=== PATIENT | female | born 1935 | race Two or more races ===

== ENCOUNTER 2016-12-14 22:37 | Inpatient (IN) | payer MEDICARE, MEDICAID ==
[~2016-12-14] VITALS: Ht 152.4 cm; Wt 61.7 kg
[2016-12-14] MEDS ORDERED: UNOBMED (22:44)
[2016-12-14 23:40] LABS: MEAN CORPUSCULAR HEMOGLOBIN 32.7 PG (27.0-31.0); MEAN CORPUSCULAR HGB CONC 35.8 G/DL (32.0-36.0); MEAN CORPUSCULAR VOLUME 91 FL (80-99); MEAN PLATELET VOLUME 8.6 FL (6.5-10.1); PLATELET COUNT 75 K/UL (150-450); RED BLOOD COUNT 4.17 M/UL (4.20-5.40); RED CELL DISTRIBUTION WIDTH 12.6 % (11.6-14.8); WHITE BLOOD COUNT 6.7 K/UL (4.8-10.8)
[2016-12-14 23:56] LABS: INR 1.1 (0.9-1.1); PROTHROMBIN TIME 11.3 SEC (9.30-11.50)
[2016-12-14 23:59] LABS: ALANINE AMINOTRANSFERASE 24 U/L (3-33); ANION GAP 14 (5-15); ASPARTATE AMINO TRANSFERASE 48 U/L (5-40); CALCIUM 8.7 mg/dL (8.6-10.2); CARBON DIOXIDE 22 mEQ/L (20-30); CHLORIDE 99 mEQ/L (98-107); CREATININE 0.7 mg/dL (0.5-0.9); HEMOLYSIS 8; POTASSIUM 3.7 mEQ/L (3.4-4.9); SODIUM 135 mEQ/L (135-145); TOTAL PROTEIN 6.7 g/dL (6.6-8.7)
[2016-12-15] MEDS ORDERED: Silver Nitrate Stick TOPIC ONE (00:15)
[2016-12-15 00:26] LABS: TROPONIN I < 0.30 ng/mL (<=0.30)
--- NOTE | 2016-12-15 00:41 | Emergency Room Report ---
History of Present Illness General Chief Complaint: Nosebleed Source: Patient, Family Member Present Illness HPI Patient presents with a nosebleed. It's substantial. This began approximately an hour before presentation to the emergency department. She didwhen she was a young child. She has a history of hypertension but denies any bleeding disorders recently. She denies any fevers, pain. She's not been swallowing the clots. She didn't decreasing the amount of bleeding by putting pressure on her nose. The patient denies any diabetes. She's not taking any aspirin or other blood thinners at this time. She denies any trauma. There is no pain. She denies any chest pain, cough, nausea, vomiting, diarrhea dysuria, melena. She has no extremity pain. Allergies: Coded Allergies: No Known Allergies (Unverified , 12/14/16) Patient History Past Medical History: see triage record Social History: Denies: alcohol use, drug use, smoking Social History Narrative With her daughter Now: No Reviewed Nursing Documentation: PMH: Agreed, PSxH: Agreed Nursing Documentation-PMH Hx Hypertension: Yes Review of Systems All Other Systems: negative except mentioned in HPI Physical Exam Vital Signs Date Time Temp Pulse Resp B/P Pulse Ox O2 Delivery O2 Flow Rate FiO2 12/14/16 22:41 84 14 168/72 97 Room Air Sp02 EP Interpretation: reviewed, normal General Appearance: well appearing, no apparent distress, GCS 15 Head: normocephalic Eyes: bilateral eye PERRL, bilateral eye normal inspection ENT: moist mucus membranes - blood on tongue, other - bleeding R side Neck: supple, no bony tend Respiratory: lungs clear, normal breath sounds Cardiovascular #1: regular rate, rhythm Cardiovascular #2: 2+ radial (R) Gastrointestinal: normal inspection, normal bowel sounds, non tender, no mass, non-distended Musculoskeletal: back normal, gait/station normal, normal range of motion Neurologic: alert, oriented x3, grossly normal Psychiatric: mood/affect normal Skin: normal inspection, warm/dry Procedures Additional Procedure Procedure Narrative Anterior epistaxis control: Back twice with lidocaine with epinephrine on cotton ball. Bleeding was stopped with this. Septal lesion is identified and silver nitrate was used to cauterize. Patient tolerated procedure well. Medical Decision Making Diagnostic Impression: Primary Impression: Epistaxis Additional Impressions: Hyperglycemia Thrombocytopenia Diabetes mellitus, new onset ER Course Patient presents with nosebleed. Affect is coming from the front suggested anterior epistaxis. Differential also includes that she might have some coagulopathy or bleeding disorder. Please check labs including INR and CBC. In addition to that electrolytes will be checked with liver function tests. The bleeding ECs controlled and she will be packed with lidocaine and epinephrine and we will attempt to cauterize the lesion. Anterior epistaxis was controlled with packing and silver nitrate. The patient tolerated by mouth well. Labs are significant for thrombocytopenia and also elevated blood sugar. No prior h/o diabetes. Due to low platelets and high glucose, patient admitted. to hospital. Started on metformin. Contacted Dr. Dunham for admission. Laboratory Tests Test 12/14/16 23:10 White Blood Count 6.7 K/UL (4.8-10.8) Red Blood Count 4.17 M/UL (4.20-5.40) L Hemoglobin 13.6 G/DL (12.0-16.0) Hematocrit 38.1 % (37.0-47.0) Mean Corpuscular Volume 91 FL (80-99) Mean Corpuscular Hemoglobin 32.7 PG (27.0-31.0) H Mean Corpuscular Hemoglobin Concent 35.8 G/DL (32.0-36.0) Red Cell Distribution Width 12.6 % (11.6-14.8) Platelet Count 75 K/UL (150-450) L Mean Platelet Volume 8.6 FL (6.5-10.1) Neutrophils (%) (Auto) % (45.0-75.0) Lymphocytes (%) (Auto) % (20.0-45.0) Monocytes (%) (Auto) % (1.0-10.0) Eosinophils (%) (Auto) % (0.0-3.0) Basophils (%) (Auto) % (0.0-2.0) Prothrombin Time 11.3 SEC (9.30-11.50) Prothrombin Time INR 1.1 (0.9-1.1) PTT 31 SEC (23-33) Sodium Level 135 mEQ/L (135-145) Potassium Level 3.7 mEQ/L (3.4-4.9) Chloride Level 99 mEQ/L (98-107) Carbon Dioxide Level 22 mEQ/L (20-30) Anion Gap 14 (5-15) Blood Urea Nitrogen 13 mg/dL (7-23) Creatinine 0.7 mg/dL (0.5-0.9) Estimate Glomerular Filtration Rate mL/min (>60) Glucose Level 438 mg/dL (74-106) H Calcium Level 8.7 mg/dL (8.6-10.2) Total Bilirubin 1.0 mg/dL (0.0-1.2) Aspartate Amino Transferase (AST) 48 U/L (5-40) H Alanine Aminotransferase (ALT) 24 U/L (3-33) Alkaline Phosphatase 152 U/L (35-104) H Total Creatine Kinase 236 U/L (26-140) H Troponin I < 0.30 ng/mL (<=0.30) Pro-B-Type Natriuretic Peptide 58 pg/mL (0-450) Total Protein 6.7 g/dL (6.6-8.7) Albumin 3.5 g/dL (3.5-5.2) Globulin 3.2 g/dL Albumin/Globulin Ratio 1.0 (1.0-2.7) EKG Diagnostic Results Rate: normal Rhythm: NSR ST Segments: no acute changes - LBBB Rhythm Strip Diag. Results EP Interpretation: yes Rhythm: NSR, no PVC's, no ectopy Last Vital Signs Date Time Temp Pulse Resp B/P Pulse Ox O2 Delivery O2 Flow Rate FiO2 12/15/16 03:38 98.8 66 20 135/66 99 Room Air Status: improved Disposition: ADMITTED INPATIENT Condition: Serious Dixon Pennington M.D. Dec 15, 2016 00:41
[2016-12-15] MEDS ORDERED: metFORMIN 500mg tab ORAL STA (00:43)
[2016-12-15 01:30] VITALS: BP 143/52
[2016-12-15 03:10] VITALS: BP 135/66
[2016-12-15] MEDS ORDERED: Nitroglycerin Subl 0.4mg tab (Bottle Of 25) SL PRN (06:30)
[2016-12-15] MEDS ORDERED: Mylanta II UD 30ml ORAL PRN (06:30)
[2016-12-15] MEDS ORDERED: Morphine Sulfate 2mg/ml Inj IVP PRN (06:30)
[2016-12-15] MEDS ORDERED: DuoNeb 0.5-3(2.5)mg/3ml neb HHN PRN (06:30)
[2016-12-15] MEDS ORDERED: Miralax 17gm pkt ORAL PRN (06:30)
[2016-12-15 08:02] VITALS: BP 169/76
[2016-12-15] MEDS: NovoLOG Insulin Flexpen SUBQ SCH ×4 (08:55→21:15)
--- NOTE | 2016-12-15 10:25 | History and Physical ---
History of Present Illness General Date patient seen: Dec 15, 2016 Reason for Hospitalization: Nosebleed Present Illness HPI 81 year old female with hx of HTN, presented with a nosebleed. It's substantial. This began approximately an hour before presentation to the emergency department. She didn't decrease the amount of bleeding by putting pressure on her nose. The patient denies any diabetes. She's not taking any aspirin or other blood thinners at this time. She denies any trauma. There is no pain. She denies any chest pain, cough, nausea, vomiting, diarrhea dysuria, melena. She has no extremity pain. She was found to be thrombocytopenic and admitted for further treatment. Allergies: Coded Allergies: No Known Allergies (Unverified , 12/14/16) Medication History Miscellaneous Medications Unable to Obtain Medications (Unable To Obtain Meds), (Reported) Patient History Healthcare decision maker Resuscitation status Advanced Directive on File Past Medical/Surgical History Past Medical/Surgical History: (1) Hypertension (2) Hyperglycemia Review of Systems All Other Systems: negative except mentioned in HPI Physical Exam General Appearance: WD/WN Lines, tubes and drains: peripheral, central line HEENT: normocephalic, atraumatic, anicteric Neck: non-tender, normal alignment Respiratory/Chest: chest wall non-tender, lungs clear Cardiovascular/Chest: normal peripheral pulses Abdomen: normal bowel sounds Genitourinary/Rectal: normal genital exam Extremities: normal range of motion Skin Exam: normal pigmentation Neurologic: cloth finisher II-XII grossly normal Last 24 Hour Vital Signs Date Time Temp Pulse Resp B/P Pulse Ox O2 Delivery O2 Flow Rate FiO2 12/15/16 08:53 169/76 12/15/16 08:02 98.2 72 16 169/76 97 12/15/16 03:38 98.8 66 20 135/66 99 Room Air 12/15/16 03:10 98.8 66 20 135/66 99 Room Air 12/15/16 01:30 98.8 66 20 143/52 99 Room Air 12/14/16 22:41 84 14 168/72 97 Room Air Intake and Output 12/14/16 12/15/16 19:00 07:00 Intake Total 0 ml Balance 0 ml Intake Oral 0 ml # Voids 2 Laboratory Tests Test 12/14/16 23:10 White Blood Count 6.7 K/UL (4.8-10.8) Red Blood Count 4.17 M/UL (4.20-5.40) L Hemoglobin 13.6 G/DL (12.0-16.0) Hematocrit 38.1 % (37.0-47.0) Mean Corpuscular Volume 91 FL (80-99) Mean Corpuscular Hemoglobin 32.7 PG (27.0-31.0) H Mean Corpuscular Hemoglobin Concent 35.8 G/DL (32.0-36.0) Red Cell Distribution Width 12.6 % (11.6-14.8) Platelet Count 75 K/UL (150-450) L Mean Platelet Volume 8.6 FL (6.5-10.1) Neutrophils (%) (Auto) % (45.0-75.0) Lymphocytes (%) (Auto) % (20.0-45.0) Monocytes (%) (Auto) % (1.0-10.0) Eosinophils (%) (Auto) % (0.0-3.0) Basophils (%) (Auto) % (0.0-2.0) Prothrombin Time 11.3 SEC (9.30-11.50) Prothromb Time International Ratio 1.1 (0.9-1.1) Activated Partial Thromboplast Time 31 SEC (23-33) Sodium Level 135 mEQ/L (135-145) Potassium Level 3.7 mEQ/L (3.4-4.9) Chloride Level 99 mEQ/L (98-107) Carbon Dioxide Level 22 mEQ/L (20-30) Anion Gap 14 (5-15) Blood Urea Nitrogen 13 mg/dL (7-23) Creatinine 0.7 mg/dL (0.5-0.9) Estimat Glomerular Filtration Rate mL/min (>60) Glucose Level 438 mg/dL (74-106) H Calcium Level 8.7 mg/dL (8.6-10.2) Total Bilirubin 1.0 mg/dL (0.0-1.2) Aspartate Amino Transf (AST/SGOT) 48 U/L (5-40) H Alanine Aminotransferase (ALT/SGPT) 24 U/L (3-33) Alkaline Phosphatase 152 U/L (35-104) H Total Creatine Kinase 236 U/L (26-140) H Troponin I < 0.30 ng/mL (<=0.30) Pro-B-Type Natriuretic Peptide 58 pg/mL (0-450) Total Protein 6.7 g/dL (6.6-8.7) Albumin 3.5 g/dL (3.5-5.2) Globulin 3.2 g/dL Albumin/Globulin Ratio 1.0 (1.0-2.7) Height (Feet): 5 Height (Inches): 0.00 Weight (Pounds): 136 Medications Current Medications Medications (Trade) Dose Ordered Sig/Wilmer Route PRN Reason Start Time Stop Time Status Last Admin Dose Admin Acetaminophen (Tylenol) 650 mg Q4H PRN ORAL fever 12/15/16 06:30 01/14/17 06:29 Al Hydroxide/Mg Hydroxide (Mylanta II) 30 ml Q6H PRN ORAL dyspepsia 12/15/16 06:30 01/14/17 06:29 Albuterol/ Ipratropium (DuoNeb 0.5-3(2.5)mg/3ml) 3 ml Q4H PRN HHN Shortness of Breath 12/15/16 06:30 12/20/16 06:29 Clonidine HCl (Catapres) 0.1 mg Q4H PRN ORAL sbp more than 160 12/15/16 06:30 01/14/17 06:29 12/15/16 08:53 Dextrose (Dextrose 50%) STAT PRN IV Hypoglycemia 12/15/16 06:30 01/14/17 06:29 Insulin Aspart (NovoLOG) BEFORE MEALS AND HS SUBQ 12/15/16 06:30 01/14/17 06:29 12/15/16 08:55 Metformin HCl (Glucophage) 500 mg TIAC ORAL 12/15/16 11:30 01/14/17 11:29 Morphine Sulfate (Morphine Sulfate) 2 mg Q4H PRN IVP severe pain 7-12/15/16 06:30 12/22/16 06:29 Nateglinide (Starlix) 120 mg TIAC ORAL 12/15/16 11:30 01/14/17 11:29 Nitroglycerin (Ntg) 0.4 mg Q5M X 3 DOSES PRN SL Prn Chest Pain 12/15/16 06:30 01/14/17 06:29 Ondansetron HCl (Zofran) 4 mg Q6H PRN IVP Nausea & Vomiting 12/15/16 06:30 01/14/17 06:29 Polyethylene Glycol (Miralax) 17 gm HSPRN PRN ORAL Constipation 12/15/16 06:30 01/14/17 06:29 Sodium Chloride (Sodium Chloride 1000ml bag) 1,000 ml @ 100 mls/hr Q10H IVLG 12/15/16 06:40 01/14/17 06:39 12/15/16 07:45 Temazepam (Restoril) 15 mg HSPRN PRN ORAL Insomnia 12/15/16 06:30 12/22/16 06:29 Assessment/Plan Problem List: (1) Epistaxis ICD Codes: R04.0 - Epistaxis SNOMED: 58322081, 157090179 (2) Thrombocytopenia ICD Codes: D69.6 - Thrombocytopenia, unspecified SNOMED: 934934181, 030650103 (3) Hyperglycemia ICD Codes: R73.9 - Hyperglycemia, unspecified SNOMED: 98383921, 876667687 Assessment/Plan ENT evaluation Hematology evaluation sliding scale Endo check h/h transfuse prn NADEEM BECERRIL Dec 15, 2016 10:25
[2016-12-15] MEDS: metFORMIN 500mg tab ORAL SCH ×2 (11:42→16:53)
[2016-12-15 11:54] VITALS: BP 138/69
--- NOTE | 2016-12-15 13:15 | Consultation ---
DATE OF CONSULTATION: 12/15/2016 ENDOCRINOLOGY CONSULTATION CONSULTING PHYSICIAN: Uli Bustos M.D. REFERRING PHYSICIAN: Stefani Dunham M.D. REASON FOR CONSULTATION: Diabetes, new onset. HISTORY OF PRESENT ILLNESS: The patient is a 81-year-old female without any history of diabetes but with significant family history of diabetes who presented to the hospital with severe epistaxis. She was found to have thrombocytopenia, admitted to the floor for observation and treatment. On presentation, her glucose is significantly elevated at 438. The patient did not know about the diagnosis of diabetes. PAST MEDICAL HISTORY: Unremarkable. PAST SURGICAL HISTORY: Unremarkable. MEDICATIONS: Reviewed and reconciled. SOCIAL HISTORY: Denies any smoking, alcohol, or drug use. FAMILY HISTORY: Significant for diabetes in her sister and mother. REVIEW OF SYSTEMS: As per history of present illness. PHYSICAL EXAMINATION: GENERAL: She is awake and alert. VITAL SIGNS: Blood pressure is 120/80, heart rate 72, temperature 98.0 degrees, and respiratory rate of 18. HEENT: Pupils are equal and reactive to light and accommodation. Sclerae are anicteric NECK: No JVD. No thyromegaly. LUNGS: Clear. HEART: Regular rate and rhythm. ABDOMEN: Positive bowel sounds. EXTREMITIES: Without clubbing, cyanosis, or edema. LABORATORY AND DIAGNOSTIC DATA: Sodium 135, potassium 3.7, chloride 99, bicarbonate 26, BUN 15, creatinine 0.7, and glucose of 437. Alkaline phosphatase 152. CK is 236. WBC 6.7, hemoglobin 13.6, hematocrit 38.1, and platelets of 75,000. DIAGNOSES: 1. Epistaxis, improved. 2. Thrombocytopenia, etiology is unknown. 3. Diabetes, new onset. PLAN: 1. Continue supportive care. 2. Metformin 500 mg t.i.d. 3. Start Starlix 120 mg t.i.d. 4. Hemoglobin A1c has been ordered by Dr. Dunham. We will follow the results. 5. Check blood glucose ac / hs with NovoLog insulin sliding scale. Thank you, Dr. Dunham, for the courtesy of this consultation. Uli Bustos M.D. DR: DANIE/javed JOB#: [id number] CC: HIEN
[2016-12-15] MEDS ORDERED: NORVASC5 MG ORAL (13:54)
[2016-12-15 16:57] VITALS: BP 127/57
--- NOTE | 2016-12-15 20:30 | Consultation ---
DATE OF CONSULTATION: 12/15/2016 HEMATOLOGY/ONCOLOGY CONSULTATION CONSULTING PHYSICIAN: Anthony Agee M.D. REQUESTING PHYSICIAN: Stefani Dnuham M.D. REASON FOR CONSULTATION: Evaluation of thrombocytopenia. IDENTIFICATION DATA: The patient is a pleasant 81-year-old female with a past medical history, which is significant for hyperglycemia and potentially newly diagnosed diabetes mellitus, at this time, presents to the hospital with an epistaxis episode that began approximately one hour prior to admission. She had the same symptoms when she was younger. She has a history of hypertension, but denies any history of recent bleeding, did not decrease in the amount of bleeding . She has not been showing clots. She has not been taking any aspirin or blood thinners. Denies any fevers, chills, or night sweats. PAST MEDICAL HISTORY: Hypertension. PAST SURGICAL HISTORY: None noted. ALLERGIES: No known drug allergies. REVIEW OF SYSTEMS: Constitutional: No fever, no chills, and no night sweats. Skin: No rashes, bumps, or itching. HEENT: No headache, hearing, or vision changes. Breasts: No lumps, pain, or discharge. Pulmonary: No cough, sputum, or shortness of breath. Cardiovascular: No chest pain, tightness, or palpitations. Gastrointestinal: No nausea, vomiting, or diarrhea. Genitourinary: No dysuria, frequency, or urgency. Musculoskeletal: No joint swelling, muscle pain, or trauma. PHYSICAL EXAMINATION: GENERAL: The patient is in no distress. VITAL SIGNS: Temperature 97.5 degrees Fahrenheit, pulse of 63, blood pressure 138/69, and pulse oximetry 97% on room air. PULMONARY: Decreased breath sounds. CARDIOVASCULAR: Regular rate. No S3 or S4. ABDOMEN: Soft, nontender and nondistended. EXTREMITIES: There is 1+ edema. LABORATORY DATA: Glucose of 138. INR 1.1. PT of 11 and PTT of 31. WBC of 6.7. Hemoglobin of 13.6 and platelet counts of 75,000. IMAGING: Reviewed. Currently, no imaging noted. ASSESSMENT AND PLAN: 1. Anterior epistaxis bleed, potentially secondary to thrombocytopenia, which is likely exacerbated. The bleed has been stopped with the administration of epinephrine and lidocaine. No evidence of coagulopathy. INR is within normal limits. 2. Anemia. Monitor crit. 3. Thrombocytopenia. I have sent for hepatitis, HIV panel, and ultrasound of the abdomen. 4. Hyperglycemia, rule out diabetes mellitus. Starting on metformin. 5. Left bundle-branch block. 6. Discussed with staff. Thank you, Dr. Stefani Dunham, for this kind referral. Please do not hesitate to contact me with any further questions. Anthony Agee M.D. DR: MIKAYLA JOB#: [id number] CC:
[2016-12-15 21:00] VITALS: BP 134/59
[2016-12-16] VITALS: BP 139/70
[2016-12-16 04:00] VITALS: BP 140/62
[2016-12-16] MEDS: metFORMIN 500mg tab ORAL SCH ×3 (06:05→16:55)
[2016-12-16] MEDS: NovoLOG Insulin Flexpen SUBQ SCH ×4 (06:07→20:56)
--- NOTE | 2016-12-16 07:43 | General Progress Note ---
Assessment/Plan Problem List: (1) Diabetes mellitus, new onset ICD Codes: E11.9 - Type 2 diabetes mellitus without complications SNOMED: 946832992 (2) Thrombocytopenia ICD Codes: D69.6 - Thrombocytopenia, unspecified SNOMED: 516456167, 138839041 (3) Hyperglycemia ICD Codes: R73.9 - Hyperglycemia, unspecified SNOMED: 44344724, 272341669 (4) Epistaxis ICD Codes: R04.0 - Epistaxis SNOMED: 54991755, 955959859 Assessment/Plan BG values improved continue Metformin 500 mg tid + Starlix 120 mg ac tid continue SSI - no need for insulin after discharge Subjective ROS Limited/Unobtainable: Yes Allergies: Coded Allergies: No Known Allergies (Unverified , 12/14/16) Subjective events noted Objective Last 24 Hour Vital Signs Date Time Temp Pulse Resp B/P Pulse Ox O2 Delivery O2 Flow Rate FiO2 12/16/16 04:00 97.9 63 20 140/62 94 Room Air 12/16/16 00:00 97.3 63 20 139/70 97 Room Air 12/15/16 21:00 97.7 67 20 134/59 97 Room Air 12/15/16 19:53 70 18 Room Air 21 12/15/16 19:51 96 Room Air 21 12/15/16 19:51 Room Air 21 12/15/16 16:57 97.7 64 14 127/57 96 Room Air 12/15/16 11:54 97.5 63 15 138/69 97 Room Air 12/15/16 08:53 169/76 12/15/16 08:02 98.2 72 16 169/76 97 Intake and Output 12/15/16 12/16/16 19:00 07:00 Intake Total 1900 ml 1250 ml Output Total 580 ml Balance 1900 ml 670 ml Intake Oral 900 ml 350 ml IV Total 1000 ml 900 ml Output Urine Total 580 ml # Voids 2 Laboratory Tests 12/15/16 14:20: Hepatitis A IgM Antibody [Pending], Hepatitis B Surface Antigen [Pending], Hepatitis B Core IgM Antibody [Pending], Hepatitis C Antibody [Pending], HIV (1& 2) Antibody Rapid Negative 12/15/16 17:30: Stool Occult Blood [Pending] Height (Feet): 5 Height (Inches): 0.00 Weight (Pounds): 136 General Appearance: no apparent distress Neck: normal alignment Cardiovascular: regular rhythm Respiratory/Chest: normal breath sounds Abdomen: normal bowel sounds Edema: no edema noted Arm (L), no edema noted Arm (R), no edema noted Leg (L), no edema noted Leg (R), no edema noted Pedal (L), no edema noted Pedal (R), no edema noted Generalized Objective Current Medications Medications (Trade) Dose Ordered Sig/Wilmer Route PRN Reason Start Time Stop Time Status Last Admin Dose Admin Acetaminophen (Tylenol) 650 mg Q4H PRN ORAL fever 12/15/16 06:30 01/14/17 06:29 Al Hydroxide/Mg Hydroxide (Mylanta II) 30 ml Q6H PRN ORAL dyspepsia 12/15/16 06:30 01/14/17 06:29 Albuterol/ Ipratropium (DuoNeb 0.5-3(2.5)mg/3ml) 3 ml Q4H PRN HHN Shortness of Breath 12/15/16 06:30 12/20/16 06:29 Amlodipine Besylate (Norvasc) 5 mg DAILY ORAL 12/16/16 09:00 01/15/17 08:59 Clonidine HCl (Catapres) 0.1 mg Q4H PRN ORAL sbp more than 160 12/15/16 06:30 01/14/17 06:29 12/15/16 08:53 Dextrose (Dextrose 50%) STAT PRN IV Hypoglycemia 12/15/16 06:30 01/14/17 06:29 Insulin Aspart (NovoLOG) BEFORE MEALS AND HS SUBQ 12/15/16 06:30 01/14/17 06:29 12/15/16 21:15 Metformin HCl (Glucophage) 500 mg TIAC ORAL 12/15/16 11:30 01/14/17 11:29 12/16/16 06:05 Morphine Sulfate (Morphine Sulfate) 2 mg Q4H PRN IVP severe pain 7-12/15/16 06:30 12/22/16 06:29 Nateglinide (Starlix) 120 mg TIAC ORAL 12/15/16 11:30 01/14/17 11:29 12/16/16 06:05 Nitroglycerin (Ntg) 0.4 mg Q5M X 3 DOSES PRN SL Prn Chest Pain 12/15/16 06:30 01/14/17 06:29 Non-Formulary Medication (Non-Formulary Med) 1 ea DAILY BOTH EYES 12/16/16 09:00 01/15/17 08:59 UNV Ondansetron HCl (Zofran) 4 mg Q6H PRN IVP Nausea & Vomiting 12/15/16 06:30 01/14/17 06:29 Polyethylene Glycol (Miralax) 17 gm HSPRN PRN ORAL Constipation 12/15/16 06:30 01/14/17 06:29 Sodium Chloride (Sodium Chloride 1000ml bag) 1,000 ml @ 100 mls/hr Q10H IVLG 12/15/16 06:40 01/14/17 06:39 12/16/16 04:10 Temazepam (Restoril) 15 mg HSPRN PRN ORAL Insomnia 12/15/16 06:30 12/22/16 06:29 Item Value Date Time Bedside Blood Glucose 191 mg/dl H 12/16/16 0607 Bedside Blood Glucose 175 mg/dl H 12/15/16 2115 Bedside Blood Glucose 138 mg/dl H 12/15/16 1655 Bedside Blood Glucose 332 mg/dl H 12/15/16 1144 Bedside Blood Glucose 229 mg/dl H 12/15/16 0855 Bedside Blood Glucose 229 mg/dl H 12/15/16 0658 CHRISTIN COLINDRES Dec 16, 2016 07:43
[2016-12-16 08:00] VITALS: BP 173/77
[2016-12-16 10:10] LABS: MEAN CORPUSCULAR HEMOGLOBIN 31.2 PG (27.0-31.0); MEAN CORPUSCULAR HGB CONC 33.6 G/DL (32.0-36.0); MEAN CORPUSCULAR VOLUME 93 FL (80-99); MEAN PLATELET VOLUME 9.6 FL (6.5-10.1); PLATELET COUNT 63 K/UL (150-450); RED BLOOD COUNT 3.66 M/UL (4.20-5.40); RED CELL DISTRIBUTION WIDTH 12.8 % (11.6-14.8); WHITE BLOOD COUNT 5.3 K/UL (4.8-10.8)
[2016-12-16 10:33] LABS: ALANINE AMINOTRANSFERASE 17 U/L (3-33); ANION GAP 11 (5-15); ASPARTATE AMINO TRANSFERASE 32 U/L (5-40); CALCIUM 8.2 mg/dL (8.6-10.2); CARBON DIOXIDE 21 mEQ/L (20-30); CHLORIDE 108 mEQ/L (98-107); CHOLESTEROL 140 mg/dL (< 200); CHOLESTEROL/HDL RATIO 3.6 (3.3-4.4); CREATININE 0.5 mg/dL (0.5-0.9); HEMOLYSIS 15; LDL CHOLESTEROL (CALC.) 74 mg/dL (60-99); POTASSIUM 3.5 mEQ/L (3.4-4.9); SODIUM 140 mEQ/L (135-145); TOTAL PROTEIN 6.1 g/dL (6.6-8.7)
[2016-12-16 10:43] LABS: THYROID STIMULATING HORMONE 0.957 uIU/mL (0.300-4.500)
[2016-12-16 10:54] LABS: BILIRUBIN,DIRECT 0.3 mg/dL (0.1-0.3)
[2016-12-16 11:19] LABS: HEMOGLOBIN A1C 9.6 % (< 6.0)
[2016-12-16 12:00] VITALS: BP 125/61
[2016-12-16 12:24] LABS: BAND NEUTROPHILS % (MANUAL) 0 % (0-8); BASOPHILS % (MANUAL) 0 % (0-2); EOSINOPHILS % (MANUAL) 4 % (0-3); LYMPHOCYTES % (MANUAL) 37 % (20-45); NEUTROPHILS % (MANUAL) 51 % (45-75); PLATELET ESTIMATE DECREASED; PLATELET MORPHOLOGY NORMAL; TOTAL CELLS COUNTED 100
--- NOTE | 2016-12-16 13:14 | Diagnostic Imaging Report ---
Indication:Abdominal pain Technique: Grayscale and duplex Doppler imaging of the abdomen performed. Comparison: None Findings: The liver is heterogeneous and shows surface nodularity. There is both antegrade and retrograde flow within the portal vein. The spleen is not enlarged. However the findings are suspicious for portal hypertension associated with chronic liver disease. There is also the suggestion of varices with serpiginous vascular structures exhibiting color flow in the upper abdomen and left upper quadrant. The kidneys are unremarkable bilaterally. There is no ascites. Spleen has dimensions of approximately 11.2 x 7 cm. Demonstrated part of the pancreas is unremarkable in appearance. There is no biliary ductal dilatation appreciated. Gallbladder is unremarkable. Impression: Suspicion of chronic liver disease/cirrhosis. Suspicion of portal hypertension as discussed above. 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
--- NOTE | 2016-12-16 15:35 | Pulmonology Progress Note ---
Assessment/Plan Problems: (1) Thrombocytopenia (2) Hyperglycemia (3) Epistaxis (4) Lower GI bleed (5) Diabetes mellitus, new onset Assessment/Plan OB + GI evaluation might need bone marrow biopsy Subjective ROS Limited/Unobtainable: No Constitutional: Reports: no symptoms HEENT: Repors: no symptoms Respiratory: Reports: no symptoms Allergies: Coded Allergies: No Known Allergies (Unverified , 12/14/16) Objective Last 24 Hour Vital Signs Date Time Temp Pulse Resp B/P Pulse Ox O2 Delivery O2 Flow Rate FiO2 12/16/16 12:00 97.7 57 16 125/61 96 Room Air 12/16/16 09:46 66 173/77 12/16/16 09:46 173/77 12/16/16 08:00 97.7 66 20 173/77 96 Room Air 12/16/16 07:53 63 18 Room Air 21 12/16/16 04:00 97.9 63 20 140/62 94 Room Air 12/16/16 00:00 97.3 63 20 139/70 97 Room Air 12/15/16 21:00 97.7 67 20 134/59 97 Room Air 12/15/16 19:53 70 18 Room Air 21 12/15/16 19:51 96 Room Air 21 12/15/16 19:51 Room Air 21 12/15/16 16:57 97.7 64 14 127/57 96 Room Air Intake and Output 12/15/16 12/16/16 19:00 07:00 Intake Total 1900 ml 1250 ml Output Total 580 ml Balance 1900 ml 670 ml Intake Oral 900 ml 350 ml IV Total 1000 ml 900 ml Output Urine Total 580 ml # Voids 2 General Appearance: WD/WN HEENT: normocephalic, atraumatic Respiratory/Chest: chest wall non-tender, lungs clear Cardiovascular: normal peripheral pulses, normal rate Abdomen: normal bowel sounds, soft, non tender Genitourinary: normal external genitalia Extremities: no cyanosis Skin: no rash Neurologic/Psychiatric: no motor/sensory deficits Lymphatic: no neck adenopathy Musculoskeletal: normal muscle bulk Laboratory Tests 12/15/16 17:30: Stool Occult Blood Positive 12/16/16 04:00: White Blood Count 5.3, Red Blood Count 3.66L, Hemoglobin 11.4L, Hematocrit 34.0L , Mean Corpuscular Volume 93, Mean Corpuscular Hemoglobin 31.2H, Mean Corpuscular Hemoglobin Concent 33.6, Red Cell Distribution Width 12.8, Platelet Count 63L, Mean Platelet Volume 9.6, Neutrophils (%) (Auto) , Lymphocytes (%) ( Auto) , Monocytes (%) (Auto) , Eosinophils (%) (Auto) , Basophils (%) (Auto) , Differential Total Cells Counted 100, Neutrophils % (Manual) 51, Lymphocytes % ( Manual) 37, Monocytes % (Manual) 8, Eosinophils % (Manual) 4H, Basophils % ( Manual) 0, Band Neutrophils 0, Platelet Estimate DecreasedL, Platelet Morphology Normal, Red Blood Cell Morphology Normal 12/16/16 09:30: Sodium Level 140, Potassium Level 3.5, Chloride Level 108H, Carbon Dioxide Level 21, Anion Gap 11, Blood Urea Nitrogen 11, Creatinine 0.5, Estimat Glomerular Filtration Rate , Glucose Level 165#H, Hemoglobin A1c 9.6H, Calcium Level 8.2L, Total Bilirubin 1.1, Direct Bilirubin 0.3, Aspartate Amino Transf ( AST/SGOT) 32, Alanine Aminotransferase (ALT/SGPT) 17, Alkaline Phosphatase 88, Total Protein 6.1L, Albumin 3.1L, Globulin 3.0, Albumin/Globulin Ratio 1.0, Triglycerides Level 137, Cholesterol Level 140, LDL Cholesterol 74, HDL Cholesterol 39, Cholesterol/HDL Ratio 3.6, Thyroid Stimulating Hormone (TSH) 0.957 Current Medications Medications (Trade) Dose Ordered Sig/Wilmer Route PRN Reason Start Time Stop Time Status Last Admin Dose Admin Acetaminophen (Tylenol) 650 mg Q4H PRN ORAL fever 12/15/16 06:30 01/14/17 06:29 Al Hydroxide/Mg Hydroxide (Mylanta II) 30 ml Q6H PRN ORAL dyspepsia 12/15/16 06:30 01/14/17 06:29 Albuterol/ Ipratropium (DuoNeb 0.5-3(2.5)mg/3ml) 3 ml Q4H PRN HHN Shortness of Breath 12/15/16 06:30 12/20/16 06:29 Amlodipine Besylate (Norvasc) 5 mg DAILY ORAL 12/16/16 09:00 01/15/17 08:59 12/16/16 09:46 Clonidine HCl (Catapres) 0.1 mg Q4H PRN ORAL sbp more than 160 12/15/16 06:30 01/14/17 06:29 12/16/16 09:46 Dextrose (Dextrose 50%) STAT PRN IV Hypoglycemia 12/15/16 06:30 01/14/17 06:29 Insulin Aspart (NovoLOG) BEFORE MEALS AND HS SUBQ 12/15/16 06:30 01/14/17 06:29 12/15/16 21:15 Latanoprost (Xalatan) 1 drop BEDTIME BOTH EYES 12/16/16 21:00 01/15/17 20:59 Metformin HCl (Glucophage) 500 mg TIAC ORAL 12/15/16 11:30 01/14/17 11:29 12/16/16 12:21 Morphine Sulfate (Morphine Sulfate) 2 mg Q4H PRN IVP severe pain 712/15/16 06:30 12/22/16 06:29 Nateglinide (Starlix) 120 mg TIAC ORAL 12/15/16 11:30 01/14/17 11:29 12/16/16 12:21 Nitroglycerin (Ntg) 0.4 mg Q5M X 3 DOSES PRN SL Prn Chest Pain 12/15/16 06:30 01/14/17 06:29 Ondansetron HCl (Zofran) 4 mg Q6H PRN IVP Nausea & Vomiting 12/15/16 06:30 01/14/17 06:29 Polyethylene Glycol (Miralax) 17 gm HSPRN PRN ORAL Constipation 12/15/16 06:30 01/14/17 06:29 Sodium Chloride (Sodium Chloride 1000ml bag) 1,000 ml @ 100 mls/hr Q10H IVLG 12/15/16 06:40 01/14/17 06:39 12/16/16 04:10 Temazepam (Restoril) 15 mg HSPRN PRN ORAL Insomnia 12/15/16 06:30 12/22/16 06:29 NADEEM BECERRIL Dec 16, 2016 15:35
[2016-12-16 16:00] VITALS: BP 132/60
[2016-12-16 20:26] VITALS: BP 146/59
--- NOTE | 2016-12-16 21:47 | General Progress Note ---
Assessment/Plan Assessment/Plan 1. Anterior epistaxis bleed, potentially secondary to thrombocytopenia, which is likely exacerbated. The bleed has been stopped with the administration of epinephrine and lidocaine. No evidence of coagulopathy. INR is within normal limits. 2. Anemia. Monitor crit. 3. Thrombocytopenia. I have sent for hepatitis, HIV panel, and ultrasound of the abdomen. ---> abd US shows evidence of portal HTN associated with liver disease ---> HIV negative, Hep panel pending 4. Hyperglycemia, rule out diabetes mellitus. Starting on metformin. 5. Left bundle-branch block. 6. Discussed with staff. Subjective Constitutional: Reports: no symptoms HEENT: Reports: no symptoms Cardiovascular: Reports: no symptoms Respiratory: Reports: no symptoms Gastrointestinal/Abdominal: Reports: no symptoms Genitourinary: Reports: no symptoms Neurologic/Psychiatric: Reports: no symptoms Endocrine: Reports: no symptoms Hematologic/Lymphatic: Reports: anemia Allergies: Coded Allergies: No Known Allergies (Unverified , 12/14/16) Subjective a/ox1, afebrile Objective Last 24 Hour Vital Signs Date Time Temp Pulse Resp B/P Pulse Ox O2 Delivery O2 Flow Rate FiO2 12/16/16 20:26 97.7 61 19 146/59 98 Room Air 12/16/16 19:15 62 18 Room Air 12/16/16 16:00 97.7 60 18 132/60 95 Room Air 12/16/16 12:00 97.7 57 16 125/61 96 Room Air 12/16/16 09:46 66 173/77 12/16/16 09:46 173/77 12/16/16 08:00 97.7 66 20 173/77 96 Room Air 12/16/16 07:53 63 18 Room Air 21 12/16/16 04:00 97.9 63 20 140/62 94 Room Air 12/16/16 00:00 97.3 63 20 139/70 97 Room Air Intake and Output 12/15/16 12/16/16 19:00 07:00 Intake Total 1900 ml 1250 ml Output Total 580 ml Balance 1900 ml 670 ml Intake Oral 900 ml 350 ml IV Total 1000 ml 900 ml Output Urine Total 580 ml # Voids 2 Laboratory Tests 12/16/16 04:00: White Blood Count 5.3, Red Blood Count 3.66L, Hemoglobin 11.4L, Hematocrit 34.0L , Mean Corpuscular Volume 93, Mean Corpuscular Hemoglobin 31.2H, Mean Corpuscular Hemoglobin Concent 33.6, Red Cell Distribution Width 12.8, Platelet Count 63L, Mean Platelet Volume 9.6, Neutrophils (%) (Auto) , Lymphocytes (%) ( Auto) , Monocytes (%) (Auto) , Eosinophils (%) (Auto) , Basophils (%) (Auto) , Differential Total Cells Counted 100, Neutrophils % (Manual) 51, Lymphocytes % ( Manual) 37, Monocytes % (Manual) 8, Eosinophils % (Manual) 4H, Basophils % ( Manual) 0, Band Neutrophils 0, Platelet Estimate DecreasedL, Platelet Morphology Normal, Red Blood Cell Morphology Normal 12/16/16 09:30: Sodium Level 140, Potassium Level 3.5, Chloride Level 108H, Carbon Dioxide Level 21, Anion Gap 11, Blood Urea Nitrogen 11, Creatinine 0.5, Estimat Glomerular Filtration Rate , Glucose Level 165#H, Hemoglobin A1c 9.6H, Calcium Level 8.2L, Total Bilirubin 1.1, Direct Bilirubin 0.3, Aspartate Amino Transf ( AST/SGOT) 32, Alanine Aminotransferase (ALT/SGPT) 17, Alkaline Phosphatase 88, Total Protein 6.1L, Albumin 3.1L, Globulin 3.0, Albumin/Globulin Ratio 1.0, Triglycerides Level 137, Cholesterol Level 140, LDL Cholesterol 74, HDL Cholesterol 39, Cholesterol/HDL Ratio 3.6, Thyroid Stimulating Hormone (TSH) 0.957 Height (Feet): 5 Height (Inches): 0.00 Weight (Pounds): 136 General Appearance: no apparent distress EENT: normal ENT inspection Neck: normal alignment Cardiovascular: normal rate Respiratory/Chest: chest wall non-tender Abdomen: normal bowel sounds Extremities: non-tender Edema: no edema noted Pedal (L), no edema noted Pedal (R) 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
[2016-12-17] VITALS: BP 139/61
[2016-12-17 04:00] VITALS: BP 153/76
[2016-12-17] MEDS: metFORMIN 500mg tab ORAL SCH ×3 (06:06→16:56)
[2016-12-17] MEDS: NovoLOG Insulin Flexpen SUBQ SCH ×4 (06:07→20:33)
[2016-12-17 07:52] LABS: MEAN CORPUSCULAR HEMOGLOBIN 30.9 PG (27.0-31.0); MEAN CORPUSCULAR HGB CONC 33.1 G/DL (32.0-36.0); MEAN CORPUSCULAR VOLUME 93 FL (80-99); MEAN PLATELET VOLUME 10.2 FL (6.5-10.1); PLATELET COUNT 73 K/UL (150-450); RED BLOOD COUNT 4.12 M/UL (4.20-5.40); RED CELL DISTRIBUTION WIDTH 12.9 % (11.6-14.8); WHITE BLOOD COUNT 6.7 K/UL (4.8-10.8)
[2016-12-17 08:02] VITALS: BP 155/75
[2016-12-17 08:16] LABS: LACTATE DEHYDROGENASE 263 U/L (135-230)
[2016-12-17 08:28] LABS: INR 1.1 (0.9-1.1); PROTHROMBIN TIME 11.3 SEC (9.30-11.50)
[2016-12-17 08:48] LABS: HEMOLYSIS 49; IRON 72 ug/dL (37-145); TOTAL IRON BINDING CAPACITY 294 ug/dL (250-400)
[2016-12-17 09:54] LABS: ERYTHROCYTE SEDIMENTATION RATE 65 MM/HR (0-30); PATH BLOOD SMEAR/OMC SENT TO PATHOLOGIST
[2016-12-17 10:05] LABS: BAND NEUTROPHILS % (MANUAL) 0 % (0-8); BASOPHILS % (MANUAL) 1 % (0-2); EOSINOPHILS % (MANUAL) 7 % (0-3); LYMPHOCYTES % (MANUAL) 44 % (20-45); NEUTROPHILS % (MANUAL) 46 % (45-75); PLATELET ESTIMATE DECREASED; PLATELET MORPHOLOGY NORMAL; TOTAL CELLS COUNTED 100
[2016-12-17 10:23] LABS: RETICULOCYTE COUNT 2.2 % (0.0-2.0)
[2016-12-17 11:40] VITALS: BP 148/69
--- NOTE | 2016-12-17 12:45 | Consultation ---
DATE OF CONSULTATION: 12/17/2016 HEAD AND NECK SURGERY AND ENT CONSULT REQUESTING PHYSICIAN: 1. Dr. Pennington 2. Stefani Dunham M.D. INDICATION FOR CONSULTATION: Epistaxis. PAST MEDICAL HISTORY: Hyperglycemia, thrombocytopenia, hypertension, diabetes mellitus, and lower GI bleed. The patient was admitted on 12/15/2016. A 81-year-old female with a substantial nosebleed, who has had difficulties stopping, but ultimately did stop. According to the nurse, she did not bleed overnight. She was seen regarding the new onset diabetes and was started on metformin. Dr. Agee, hr analyst saw her regarding thrombocytopenia. MEDICATIONS: Include Dilantin, Norvasc, Glucophage, Starlix, DuoNeb, Tylenol, morphine sulfate, MiraLAX, Zofran, Restoril, Mylanta, nitroglycerin, NovoLog and Catapres. ALLERGIES: No known drug allergies. PHYSICAL EXAMINATION: VITAL SIGNS: Height 152.4 cm, weight 61.689 kilograms, and BMI 26.6. HEENT: Head, normocephalic. Ears, positive light reflex. Normal canal. Mouth, normal. NECK: Normal. Nose, there is some dry blood in either nostril, but no mass is seen. Very dry mucosa. ASSESSMENT: Epistaxis. Combining thrombocytopenia with dry mucosa can lead to the epistaxis. Her PTT has come down and treated was 31 on admission, down to 23. Her INR has been normal throughout. Her hemoglobin is equilibrated due to volume addition and dilution overall though was stable, however, platelet count still was decreased. I will leave that up to Dr. Agee to determine, although it is starting to come up from yesterday, this may be laboratory variation or true. PLAN: I would recommend a small amount of Neosporin or Polysporin to the nose about eighth of an inch to quarter of an inch up twice a day. This will help moisturize the nose keeping mucosa softer and less friable. I have discussed this with Sofia, the nurse covering at this time on the floor, person to person, [id number]-hirt. Thank you very much for asking my opinion in the care and treatment of this patient. Rj Chacon M.D. DR: Rogers JOB#: [id number] CC:
--- NOTE | 2016-12-17 13:10 | General Progress Note ---
Assessment/Plan Problem List: (1) Diabetes mellitus, new onset ICD Codes: E11.9 - Type 2 diabetes mellitus without complications SNOMED: 770078859 (2) Thrombocytopenia ICD Codes: D69.6 - Thrombocytopenia, unspecified SNOMED: 720582112, 014422971 (3) Hyperglycemia ICD Codes: R73.9 - Hyperglycemia, unspecified SNOMED: 82655489, 040845407 (4) Epistaxis ICD Codes: R04.0 - Epistaxis SNOMED: 02057567, 146440091 Assessment/Plan BG values controlled on current regimen continue Metformin 500 mg tid + Starlix 120 mg ac tid continue SSI - no need for insulin after discharge Subjective Allergies: Coded Allergies: No Known Allergies (Unverified , 12/14/16) All Systems: reviewed and negative except above Subjective events noted Objective Last 24 Hour Vital Signs Date Time Temp Pulse Resp B/P Pulse Ox O2 Delivery O2 Flow Rate FiO2 12/17/16 11:40 97.3 70 22 148/69 99 Room Air 12/17/16 09:08 63 155/75 12/17/16 09:01 71 18 Room Air 21 12/17/16 08:02 97.7 63 21 155/75 99 Room Air 12/17/16 04:00 97.7 64 19 153/76 96 Room Air 12/17/16 00:00 97.6 67 18 139/61 99 Nasal Cannula 12/16/16 20:26 97.7 61 19 146/59 98 Room Air 12/16/16 19:15 62 18 Room Air 21 12/16/16 16:00 97.7 60 18 132/60 95 Room Air Intake and Output 12/16/16 12/17/16 19:00 07:00 Intake Total 580 ml 1340 ml Balance 580 ml 1340 ml Intake Oral 480 ml 240 ml IV Total 100 ml 1100 ml # Voids 6 2 Laboratory Tests 12/16/16 22:05: Stool Occult Blood Positive 12/17/16 07:05: White Blood Count 6.7, Red Blood Count 4.12L, Hemoglobin 12.7, Hematocrit 38.5, Mean Corpuscular Volume 93, Mean Corpuscular Hemoglobin 30.9, Mean Corpuscular Hemoglobin Concent 33.1, Red Cell Distribution Width 12.9, Platelet Count 73L, Mean Platelet Volume 10.2H, Neutrophils (%) (Auto) , Lymphocytes (%) (Auto) , Monocytes (%) (Auto) , Eosinophils (%) (Auto) , Basophils (%) (Auto) , Differential Total Cells Counted 100, Neutrophils % (Manual) 46, Lymphocytes % ( Manual) 44, Monocytes % (Manual) 2, Eosinophils % (Manual) 7H, Basophils % ( Manual) 1, Band Neutrophils 0, Platelet Estimate DecreasedL, Platelet Morphology Normal, Red Blood Cell Morphology Normal, Erythrocyte Sedimentation Rate 65H, Reticulocyte Count 2.2H, Prothrombin Time 11.3, Prothromb Time International Ratio 1.1, Activated Partial Thromboplast Time 23, Iron Level 72, Total Iron Binding Capacity 294, Percent Iron Saturation 24, Unsaturated Iron Binding 222, Lactate Dehydrogenase 263H, Carcinoembryonic Antigen 3.7H, Vitamin B12 Level > 2000H, Folate [Pending] Height (Feet): 5 Height (Inches): 0.00 Weight (Pounds): 136 General Appearance: no apparent distress Neck: normal alignment Cardiovascular: normal rate Respiratory/Chest: lungs clear Abdomen: normal bowel sounds Pelvis: normal external exam Edema: no edema noted Arm (L), no edema noted Arm (R), no edema noted Leg (L), no edema noted Leg (R), no edema noted Pedal (L), no edema noted Pedal (R), no edema noted Generalized Objective Current Medications Medications (Trade) Dose Ordered Sig/Wilmer Route PRN Reason Start Time Stop Time Status Last Admin Dose Admin Acetaminophen (Tylenol) 650 mg Q4H PRN ORAL fever 12/15/16 06:30 01/14/17 06:29 Al Hydroxide/Mg Hydroxide (Mylanta II) 30 ml Q6H PRN ORAL dyspepsia 12/15/16 06:30 01/14/17 06:29 Albuterol/ Ipratropium (DuoNeb 0.5-3(2.5)mg/3ml) 3 ml Q4H PRN HHN Shortness of Breath 12/15/16 06:30 12/20/16 06:29 Amlodipine Besylate (Norvasc) 5 mg DAILY ORAL 12/16/16 09:00 01/15/17 08:59 12/17/16 09:08 Clonidine HCl (Catapres) 0.1 mg Q4H PRN ORAL sbp more than 160 12/15/16 06:30 01/14/17 06:29 12/16/16 09:46 Dextrose (Dextrose 50%) STAT PRN IV Hypoglycemia 12/15/16 06:30 01/14/17 06:29 Insulin Aspart (NovoLOG) BEFORE MEALS AND HS SUBQ 12/15/16 06:30 01/14/17 06:29 12/17/16 12:50 Latanoprost (Xalatan) 1 drop BEDTIME BOTH EYES 12/16/16 21:00 01/15/17 20:59 12/16/16 21:23 Metformin HCl (Glucophage) 500 mg TIAC ORAL 12/15/16 11:30 01/14/17 11:29 12/17/16 12:48 Morphine Sulfate (Morphine Sulfate) 2 mg Q4H PRN IVP severe pain 712/15/16 06:30 12/22/16 06:29 12/17/16 05:43 Nateglinide (Starlix) 120 mg TIAC ORAL 12/15/16 11:30 01/14/17 11:29 12/17/16 12:49 Nitroglycerin (Ntg) 0.4 mg Q5M X 3 DOSES PRN SL Prn Chest Pain 12/15/16 06:30 01/14/17 06:29 Ondansetron HCl (Zofran) 4 mg Q6H PRN IVP Nausea & Vomiting 12/15/16 06:30 01/14/17 06:29 Polyethylene Glycol (Miralax) 17 gm HSPRN PRN ORAL Constipation 12/15/16 06:30 01/14/17 06:29 Sodium Chloride (Sodium Chloride 1000ml bag) 1,000 ml @ 100 mls/hr Q10H IVLG 12/15/16 06:40 01/14/17 06:39 12/17/16 02:09 Temazepam (Restoril) 15 mg HSPRN PRN ORAL Insomnia 12/15/16 06:30 12/22/16 06:29 Item Value Date Time Bedside Blood Glucose 114 mg/dl 12/17/16 1250 Bedside Blood Glucose 129 mg/dl H 12/17/16 0607 Bedside Blood Glucose 108 mg/dl 12/16/16 2056 Bedside Blood Glucose 130 mg/dl H 12/16/16 1658 Bedside Blood Glucose 186 mg/dl H 12/16/16 1130 CHRISTIN COLINDRES Dec 17, 2016 13:10
--- NOTE | 2016-12-17 15:22 | GI Initial Consult Note ---
BeronicaSelma Yung N.P. 12/17/16 1522: History of Present Illness General Date patient seen: Dec 17, 2016 Time patient seen: 11:00 Reason for Hospitalization: Nosebleed Referring physician: NADEEM BECERRIL Reason for Consultation: OB STOOL POSITIVE Present Illness HPI Patient presents with a nosebleed. It's substantial. This began approximately an hour before presentation to the emergency department. She didwhen she was a young child. She has a history of hypertension but denies any bleeding disorders recently. She denies any fevers, pain. She's not been swallowing the clots. She didn't decreasing the amount of bleeding by putting pressure on her nose. The patient denies any diabetes. She's not taking any aspirin or other blood thinners at this time. She denies any trauma. There is no pain. She denies any chest pain, cough, nausea, vomiting, diarrhea dysuria, melena. She has no extremity pain. GI Consult. HPI as noted above. GI consulted for positive OB stool. Abdominal U/S reviewed showed patient to have suspicion on chronic liver disease with suspicion of portal HTN. Denies ETOH/tobacco/drug use. Pt seen on floor awake A&Ox4 NAD with no active s/sx of N/V/D. According to patient, she states she had massive amounts of blood loss but denies hematemesis and coffee grounds. Based on the abdominal U/S, the patient agreed to have a EGD performed tomorrow to evaluate for esophageal varices. She also states she has a history of a "twisted colon" due prolapse uterus in the past. Hep panel unremarkable. Procedure: US ABD Complete Indication:Abdominal pain Impression: Suspicion of chronic liver disease/cirrhosis. Suspicion of portal hypertension as discussed above. 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 Home Meds Reported Medications Amlodipine Besylate (Norvasc) 5 Mg Tablet, 5 MG ORAL DAILY, TAB 12/15/16 Unable to Obtain Medications (UNABLE TO OBTAIN MEDS) 1 Ea Ea 12/14/16 Med list reviewed/reconciled: Yes Allergies: Coded Allergies: No Known Allergies (Unverified , 12/14/16) Patient History History Provided By: Patient, Medical Record PMH Narrative Past Medical History: see triage record Social History: Denies: alcohol use, drug use, smoking Social History Narrative With her daughter Now: No Reviewed Nursing Documentation: PMH: Agreed, PSxH: Agreed Nursing Documentation-PMH Hx Hypertension: Yes Social History: Denies: alcohol use, drug use, other, smoking Review of Systems All Other Systems: limited Physical Exam Vital Signs Date Time Temp Pulse Resp B/P Pulse Ox O2 Delivery O2 Flow Rate FiO2 12/14/16 22:41 84 14 168/72 97 Room Air 12/15/16 01:30 98.8 12/15/16 19:51 21 Sp02 EP Interpretation: reviewed Labs Laboratory Tests Test 12/16/16 22:05 12/17/16 07:05 Stool Occult Blood Positive (NEGATIVE) White Blood Count 6.7 K/UL (4.8-10.8) Red Blood Count 4.12 M/UL (4.20-5.40) L Hemoglobin 12.7 G/DL (12.0-16.0) Hematocrit 38.5 % (37.0-47.0) Mean Corpuscular Volume 93 FL (80-99) Mean Corpuscular Hemoglobin 30.9 PG (27.0-31.0) Mean Corpuscular Hemoglobin Concent 33.1 G/DL (32.0-36.0) Red Cell Distribution Width 12.9 % (11.6-14.8) Platelet Count 73 K/UL (150-450) L Mean Platelet Volume 10.2 FL (6.5-10.1) H Neutrophils (%) (Auto) % (45.0-75.0) Lymphocytes (%) (Auto) % (20.0-45.0) Monocytes (%) (Auto) % (1.0-10.0) Eosinophils (%) (Auto) % (0.0-3.0) Basophils (%) (Auto) % (0.0-2.0) Differential Total Cells Counted 100 Neutrophils % (Manual) 46 % (45-75) Lymphocytes % (Manual) 44 % (20-45) Monocytes % (Manual) 2 % (1-10) Eosinophils % (Manual) 7 % (0-3) H Basophils % (Manual) 1 % (0-2) Band Neutrophils 0 % (0-8) Platelet Estimate Decreased L Platelet Morphology Normal Red Blood Cell Morphology Normal Erythrocyte Sedimentation Rate 65 MM/HR (0-30) H Reticulocyte Count 2.2 % (0.0-2.0) H Prothrombin Time 11.3 SEC (9.30-11.50) Prothromb Time International Ratio 1.1 (0.9-1.1) Activated Partial Thromboplast Time 23 SEC (23-33) Iron Level 72 ug/dL (37-145) Total Iron Binding Capacity 294 ug/dL (250-400) Percent Iron Saturation 24 % (15-50) Unsaturated Iron Binding 222 ug/dL (112-346) Lactate Dehydrogenase 263 U/L (135-230) H Carcinoembryonic Antigen 3.7 ng/mL H Vitamin B12 Level > 2000 pg/mL (211-946) H Folate Pending General Appearance: well appearing, no apparent distress, alert, non-toxic EENT: normal ENT inspection Neck: full range of motion, supple Respiratory: normal breath sounds, no rhonchi, no respiratory distress Cardiovascular: normal rate Gastrointestinal: normal inspection, non tender, soft, normal bowel sounds Rectal: deferred Genitourinary: no CVA tenderness Musculoskeletal: normal inspection, back normal, digits/nails normal Neurologic: normal inspection, alert, oriented x3, responsive Psychiatric: normal inspection, judgement/insight normal, memory normal Skin: normal inspection, normal color, no rash, warm/dry, palpation normal, well hydrated, normal turgor Lymphatic: normal inspection, no adenopathy, axilla node tender (R) Current Medications Current Medications Medications (Trade) Dose Ordered Sig/Wilmer Route PRN Reason Start Time Stop Time Status Last Admin Dose Admin Acetaminophen (Tylenol) 650 mg Q4H PRN ORAL fever 12/15/16 06:30 01/14/17 06:29 Al Hydroxide/Mg Hydroxide (Mylanta II) 30 ml Q6H PRN ORAL dyspepsia 12/15/16 06:30 01/14/17 06:29 Albuterol/ Ipratropium (DuoNeb 0.5-3(2.5)mg/3ml) 3 ml Q4H PRN HHN Shortness of Breath 12/15/16 06:30 12/20/16 06:29 Amlodipine Besylate (Norvasc) 5 mg DAILY ORAL 12/16/16 09:00 01/15/17 08:59 12/17/16 09:08 Clonidine HCl (Catapres) 0.1 mg Q4H PRN ORAL sbp more than 160 7/4/17 06:30 01/14/17 06:29 12/16/16 09:46 Dextrose (Dextrose 50%) STAT PRN IV Hypoglycemia 12/15/16 06:30 01/14/17 06:29 Insulin Aspart (NovoLOG) BEFORE MEALS AND HS SUBQ 12/15/16 06:30 01/14/17 06:29 12/17/16 12:50 Latanoprost (Xalatan) 1 drop BEDTIME BOTH EYES 12/16/16 21:00 01/15/17 20:59 12/16/16 21:23 Metformin HCl (Glucophage) 500 mg TIAC ORAL 12/15/16 11:30 01/14/17 11:29 12/17/16 12:48 Morphine Sulfate (Morphine Sulfate) 2 mg Q4H PRN IVP severe pain 7-12/15/16 06:30 12/22/16 06:29 12/17/16 05:43 Nateglinide (Starlix) 120 mg TIAC ORAL 12/15/16 11:30 01/14/17 11:29 12/17/16 12:49 Nitroglycerin (Ntg) 0.4 mg Q5M X 3 DOSES PRN SL Prn Chest Pain 12/15/16 06:30 01/14/17 06:29 Ondansetron HCl (Zofran) 4 mg Q6H PRN IVP Nausea & Vomiting 12/15/16 06:30 01/14/17 06:29 Polyethylene Glycol (Miralax) 17 gm HSPRN PRN ORAL Constipation 12/15/16 06:30 01/14/17 06:29 Sodium Chloride (Sodium Chloride 1000ml bag) 1,000 ml @ 100 mls/hr Q10H IVLG 12/15/16 06:40 01/14/17 06:39 12/17/16 02:09 Temazepam (Restoril) 15 mg HSPRN PRN ORAL Insomnia 12/15/16 06:30 12/22/16 06:29 GI: Plan Problems: (1) Occult blood in stools (2) Portal hypertension (3) Epistaxis (4) Hypertension Plan abdominal U/S reviewed, suspicion for chronic liver disease, cirrhosis, portal HTN, and esophageal varices. hepatitis panel unremarkable occult blood stool positive EGD scheduled tomorrow. - ADA cardiac diet now, NPO @ [place]. - hold all blood thinners 8 hours prior procedure monitor H&H, transfuse prn ppi fu labs Discussed with Dr. Stanford. Thank you for referring this patient, we will follow. JOSTIN STANFORD 12/18/16 1226: History of Present Illness General Reason for Hospitalization: Nosebleed Present Illness Home Meds Reported Medications Amlodipine Besylate (Norvasc) 5 Mg Tablet, 5 MG ORAL DAILY, TAB 12/15/16 Unable to Obtain Medications (UNABLE TO OBTAIN MEDS) 1 Ea Ea 12/14/16 Allergies: Coded Allergies: No Known Allergies (Unverified , 12/14/16) GI: Plan Plan The patient was seen and examined at bedside and all new and available data was reviewed in the patients chart. I agree with the above findings, impression and plan. (Patient seen earlier today. Signature stamp does not reflect patient encounter time.). -Svetlana Goodwin MDh Dilshad Morales Dec 17, 2016 15:22 JOSTIN STANFORD Dec 18, 2016 12:26
--- NOTE | 2016-12-17 15:47 | Pulmonology Progress Note ---
Assessment/Plan Problems: (1) Thrombocytopenia (2) Hyperglycemia (3) Epistaxis (4) Lower GI bleed (5) Diabetes mellitus, new onset Assessment/Plan OB + for endoscopy in am GI evaluation might need bone marrow biopsy as outpatient ENT consult appreciated Subjective ROS Limited/Unobtainable: No Constitutional: Reports: no symptoms HEENT: Repors: no symptoms Respiratory: Reports: no symptoms Cardiovascular: Reports: no symptoms Gastrointestinal/Abdominal: Reports: no symptoms Allergies: Coded Allergies: No Known Allergies (Unverified , 12/14/16) Objective Last 24 Hour Vital Signs Date Time Temp Pulse Resp B/P Pulse Ox O2 Delivery O2 Flow Rate FiO2 12/17/16 11:40 97.3 70 22 148/69 99 Room Air 12/17/16 09:08 63 155/75 12/17/16 09:01 71 18 Room Air 21 12/17/16 08:02 97.7 63 21 155/75 99 Room Air 12/17/16 04:00 97.7 64 19 153/76 96 Room Air 12/17/16 00:00 97.6 67 18 139/61 99 Nasal Cannula 12/16/16 20:26 97.7 61 19 146/59 98 Room Air 12/16/16 19:15 62 18 Room Air 21 12/16/16 16:00 97.7 60 18 132/60 95 Room Air Intake and Output 12/16/16 12/17/16 19:00 07:00 Intake Total 580 ml 1340 ml Balance 580 ml 1340 ml Intake Oral 480 ml 240 ml IV Total 100 ml 1100 ml # Voids 6 2 General Appearance: WD/WN HEENT: normocephalic, atraumatic Respiratory/Chest: chest wall non-tender, lungs clear Cardiovascular: normal peripheral pulses, normal rate Abdomen: normal bowel sounds, soft, non tender Genitourinary: normal external genitalia Extremities: no cyanosis, no clubbing Neurologic/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: 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, abnormal gait Lymphatic: no neck adenopathy Laboratory Tests 12/16/16 22:05: Stool Occult Blood Positive 12/17/16 07:05: White Blood Count 6.7, Red Blood Count 4.12L, Hemoglobin 12.7, Hematocrit 38.5, Mean Corpuscular Volume 93, Mean Corpuscular Hemoglobin 30.9, Mean Corpuscular Hemoglobin Concent 33.1, Red Cell Distribution Width 12.9, Platelet Count 73L, Mean Platelet Volume 10.2H, Neutrophils (%) (Auto) , Lymphocytes (%) (Auto) , Monocytes (%) (Auto) , Eosinophils (%) (Auto) , Basophils (%) (Auto) , Differential Total Cells Counted 100, Neutrophils % (Manual) 46, Lymphocytes % ( Manual) 44, Monocytes % (Manual) 2, Eosinophils % (Manual) 7H, Basophils % ( Manual) 1, Band Neutrophils 0, Platelet Estimate DecreasedL, Platelet Morphology Normal, Red Blood Cell Morphology Normal, Erythrocyte Sedimentation Rate 65H, Reticulocyte Count 2.2H, Prothrombin Time 11.3, Prothromb Time International Ratio 1.1, Activated Partial Thromboplast Time 23, Iron Level 72, Total Iron Binding Capacity 294, Percent Iron Saturation 24, Unsaturated Iron Binding 222, Lactate Dehydrogenase 263H, Carcinoembryonic Antigen 3.7H, Vitamin B12 Level > 2000H, Folate [Pending] Current Medications Medications (Trade) Dose Ordered Sig/Wilmer Route PRN Reason Start Time Stop Time Status Last Admin Dose Admin Acetaminophen (Tylenol) 650 mg Q4H PRN ORAL fever 12/15/16 06:30 01/14/17 06:29 Al Hydroxide/Mg Hydroxide (Mylanta II) 30 ml Q6H PRN ORAL dyspepsia 12/15/16 06:30 01/14/17 06:29 Albuterol/ Ipratropium (DuoNeb 0.5-3(2.5)mg/3ml) 3 ml Q4H PRN HHN Shortness of Breath 12/15/16 06:30 12/20/16 06:29 Amlodipine Besylate (Norvasc) 5 mg DAILY ORAL 12/16/16 09:00 01/15/17 08:59 12/17/16 09:08 Clonidine HCl (Catapres) 0.1 mg Q4H PRN ORAL sbp more than 160 12/15/16 06:30 01/14/17 06:29 12/16/16 09:46 Dextrose (Dextrose 50%) STAT PRN IV Hypoglycemia 12/15/16 06:30 01/14/17 06:29 Insulin Aspart (NovoLOG) BEFORE MEALS AND HS SUBQ 12/15/16 06:30 01/14/17 06:29 12/17/16 12:50 Latanoprost (Xalatan) 1 drop BEDTIME BOTH EYES 12/16/16 21:00 01/15/17 20:59 12/16/16 21:23 Metformin HCl (Glucophage) 500 mg TIAC ORAL 12/15/16 11:30 01/14/17 11:29 12/17/16 12:48 Morphine Sulfate (Morphine Sulfate) 2 mg Q4H PRN IVP severe pain 12-2112/15/16 06:30 12/22/16 06:29 12/17/16 05:43 Nateglinide (Starlix) 120 mg TIAC ORAL 12/15/16 11:30 01/14/17 11:29 12/17/16 12:49 Nitroglycerin (Ntg) 0.4 mg Q5M X 3 DOSES PRN SL Prn Chest Pain 12/15/16 06:30 01/14/17 06:29 Ondansetron HCl (Zofran) 4 mg Q6H PRN IVP Nausea & Vomiting 12/15/16 06:30 01/14/17 06:29 Pantoprazole (Protonix) 40 mg DAILY ORAL 12/18/16 09:00 01/17/17 08:59 Polyethylene Glycol (Miralax) 17 gm HSPRN PRN ORAL Constipation 12/15/16 06:30 01/14/17 06:29 Sodium Chloride (Sodium Chloride 1000ml bag) 1,000 ml @ 100 mls/hr Q10H IVLG 12/15/16 06:40 01/14/17 06:39 12/17/16 02:09 Temazepam (Restoril) 15 mg HSPRN PRN ORAL Insomnia 12/15/16 06:30 12/22/16 06:29 NADEEM BECERRIL Dec 17, 2016 15:46
[2016-12-17 16:14] VITALS: BP 136/65
[2016-12-17 20:00] VITALS: BP 163/74
--- NOTE | 2016-12-17 21:34 | General Progress Note ---
Assessment/Plan Assessment/Plan 1. Anterior epistaxis bleed, potentially secondary to thrombocytopenia, which is likely exacerbated. The bleed has been controlled with the administration of epinephrine and lidocaine. No evidence of coagulopathy. The INR is within normal limits. 2. Anemia. Monitor crit. Stable, improved 3. Thrombocytopenia. negative for hepatitis and hiv, us of the abd shows cirrhosis, portal htn ---> abd US shows evidence of portal HTN associated with liver disease ---> SINCE PLATELET COUNT >50k and bleed resolved, hold off on transfusions. The H/H stable at the moment. ---> Monitor H/H 4. Hyperglycemia, rule out diabetes mellitus. Starting on metformin. 5. Left bundle-branch block. 6. Occult blood positive ---> to have egd tomorrow 7. Discussed with staff Subjective Allergies: Coded Allergies: No Known Allergies (Unverified , 12/14/16) Subjective ob positive, had small amount of nose bleeding overnight, egd tomorrow Objective Last 24 Hour Vital Signs Date Time Temp Pulse Resp B/P Pulse Ox O2 Delivery O2 Flow Rate FiO2 12/17/16 20:00 163/74 12/17/16 20:00 97.9 71 20 163/74 97 Room Air 12/17/16 19:56 71 18 Room Air 21 12/17/16 16:14 98.4 67 19 136/65 98 Room Air 12/17/16 11:40 97.3 70 22 148/69 99 Room Air 12/17/16 09:08 63 155/75 12/17/16 09:01 71 18 Room Air 21 12/17/16 08:02 97.7 63 21 155/75 99 Room Air 12/17/16 04:00 97.7 64 19 153/76 96 Room Air 12/17/16 00:00 97.6 67 18 139/61 99 Nasal Cannula Intake and Output 12/16/16 12/17/16 19:00 07:00 Intake Total 580 ml 1340 ml Balance 580 ml 1340 ml Intake Oral 480 ml 240 ml IV Total 100 ml 1100 ml # Voids 6 2 Laboratory Tests 12/16/16 22:05: Stool Occult Blood Positive 12/17/16 07:05: White Blood Count 6.7, Red Blood Count 4.12L, Hemoglobin 12.7, Hematocrit 38.5, Mean Corpuscular Volume 93, Mean Corpuscular Hemoglobin 30.9, Mean Corpuscular Hemoglobin Concent 33.1, Red Cell Distribution Width 12.9, Platelet Count 73L, Mean Platelet Volume 10.2H, Neutrophils (%) (Auto) , Lymphocytes (%) (Auto) , Monocytes (%) (Auto) , Eosinophils (%) (Auto) , Basophils (%) (Auto) , Differential Total Cells Counted 100, Neutrophils % (Manual) 46, Lymphocytes % ( Manual) 44, Monocytes % (Manual) 2, Eosinophils % (Manual) 7H, Basophils % ( Manual) 1, Band Neutrophils 0, Platelet Estimate DecreasedL, Platelet Morphology Normal, Red Blood Cell Morphology Normal, Erythrocyte Sedimentation Rate 65H, Reticulocyte Count 2.2H, Prothrombin Time 11.3, Prothromb Time International Ratio 1.1, Activated Partial Thromboplast Time 23, Iron Level 72, Total Iron Binding Capacity 294, Percent Iron Saturation 24, Unsaturated Iron Binding 222, Lactate Dehydrogenase 263H, Carcinoembryonic Antigen 3.7H, Vitamin B12 Level > 2000H, Folate [Pending] Height (Feet): 5 Height (Inches): 0.00 Weight (Pounds): 136 General Appearance: no apparent distress EENT: PERRL/EOMI Neck: non-tender Cardiovascular: normal peripheral pulses Respiratory/Chest: chest wall non-tender Abdomen: no mass Edema: no edema noted Pedal (L), no edema noted Pedal (R) Neurologic: oriented x 3 Skin: warm/dry Anthony Agee Dec 17, 2016 21:34
[2016-12-18] VITALS (12 sets, daily range): BP systolic 129–154; BP diastolic 56–71
[2016-12-18] MEDS: metFORMIN 500mg tab ORAL SCH ×3 (06:07→17:00)
[2016-12-18] MEDS: NovoLOG Insulin Flexpen SUBQ SCH ×3 (06:07→17:03)
[2016-12-18 06:22] LABS: MEAN CORPUSCULAR HEMOGLOBIN 31.8 PG (27.0-31.0); MEAN CORPUSCULAR HGB CONC 33.9 G/DL (32.0-36.0); MEAN CORPUSCULAR VOLUME 94 FL (80-99); MEAN PLATELET VOLUME 8.5 FL (6.5-10.1); PLATELET COUNT 61 K/UL (150-450); RED BLOOD COUNT 3.56 M/UL (4.20-5.40); RED CELL DISTRIBUTION WIDTH 12.8 % (11.6-14.8); WHITE BLOOD COUNT 5.3 K/UL (4.8-10.8)
[2016-12-18 06:29] LABS: INR 1.1 (0.9-1.1)
[2016-12-18 07:08] LABS: ALANINE AMINOTRANSFERASE 17 U/L (3-33); ALBUMIN/GLOBULIN RATIO 1.1 (1.0-2.7); ANION GAP 12 (5-15); ASPARTATE AMINO TRANSFERASE 35 U/L (5-40); CALCIUM 8.2 mg/dL (8.6-10.2); CARBON DIOXIDE 20 mEQ/L (20-30); CHLORIDE 109 mEQ/L (98-107); CREATININE 0.6 mg/dL (0.5-0.9); HEMOLYSIS 4; POTASSIUM 3.3 mEQ/L (3.4-4.9); SODIUM 141 mEQ/L (135-145); TOTAL PROTEIN 6.1 g/dL (6.6-8.7)
[2016-12-18 07:09] LABS: MAGNESIUM 1.6 mg/dL (1.7-2.5); PHOSPHORUS 2.8 mg/dL (2.5-4.8)
[2016-12-18 08:08] LABS: ANISOCYTOSIS 1+; BAND NEUTROPHILS % (MANUAL) 0 % (0-8); BASOPHILS % (MANUAL) 0 % (0-2); EOSINOPHILS % (MANUAL) 3 % (0-3); LYMPHOCYTES % (MANUAL) 45 % (20-45); NEUTROPHILS % (MANUAL) 50 % (45-75); PLATELET ESTIMATE DECREASED; PLATELET MORPHOLOGY NORMAL; TOTAL CELLS COUNTED 100
[2016-12-18 10:05] LABS: OTHERS PATHOLOGIST COMMENT
[2016-12-18] MEDS ORDERED: NS 550ML IV ONE (11:40)
--- NOTE | 2016-12-18 11:53 | Pre-Procedure Note/Attestation ---
Pre-Procedure Note/Attestation Complete Prior to Procedure Planned Procedure: not applicable Procedure Narrative: EGD Indications for Procedure Pre-Operative Diagnosis: anemia Attestation I attest that I discussed the nature of the procedure; its benefits; risks and complications; and alternatives (and the risks and benefits of such alternatives ), prior to the procedure, with the patient (or the patient's legal transportation services representative). I attest that, if there was a reasonable possibility of needing a blood transfusion, the patient (or the patient's legal transportation services representative) was given the [facility] standardized written summary, pursuant to the [place] Blood Safety Act ([place] Health and Safety Code # 1645, as amended). I attest that I re-evaluated the patient just prior to the surgery and that there has been no change in the patient's H&P, except as documented below: JOSTIN STANFORD Dec 18, 2016 11:53
--- NOTE | 2016-12-18 12:04 | Endoscopy Procedure Note ---
Endoscopy Procedure Note Indication for Procedure: anemia Procedures Performed: EGD Operative Findings/Diagnosis: gastritis Specimen: yes Pt Tolerated Procedure Well: Yes Estimated Blood Loss: none Anesthesiologist: lefty Anesthesia: MAC Implant(s) used?: No 50 yrs or older w/o bx or poly: Not Applicable 10yrs. F/U not recommended: Not Applicable JOSTIN STANFORD Dec 18, 2016 12:04
--- NOTE | 2016-12-18 12:19 | Immediate Post-Op Evaluation ---
Immediate Post-Op Evalulation Immediate Post-Op Evalulation Procedure: EGD Date of Evaluation: Dec 18, 2016 Time of Evaluation: 12:10 IV Fluids: 500 Blood Pressure Systolic: 132 Blood Pressure Diastolic: 66 Pulse Rate: 70 Respiratory Rate: 14 O2 Sat by Pulse Oximetry: 100 Temperature (Fahrenheit): 97.8 Nausea: No Vomiting: No Complications none Patient Status: awake, reacts, patent Hydration Status: adequate Drug: none JIM STEWART CRNA Dec 18, 2016 12:19
--- NOTE | 2016-12-18 12:22 | Anethesia Preoperative Eval ---
Anesthesia Pre-op PMH/ROS General Date of Evaluation: Dec 18, 2016 Time of Evaluation: 11:55 Anesthesiologist: bahman ASA Score: ASA 3 Mallampati Score Class I : Soft palate, uvula, fauces, pillars visible Class II: Soft palate, uvula, fauces visible Class III: Soft palate, base of uvula visible Class IV: Only hard plate visible Mallampati Classification: Class III Surgeon: kush Diagnosis: anemia Surgical Procedure: EGD Anesthesia History: none Family History: no anesthesia problems Allergies: Coded Allergies: No Known Allergies (Unverified , 12/14/16) Medications: see eMAR Past Medical History Cardiovascular: Reports: HTN Pulmonary: Denies: COPD, TRUONG, asthma, other Gastrointestinal/Genitourinary: Denies: CRI, ESRD, GERD, other Neurologic/Psychiatric: Denies: CVA, TIA, dementia, depression/anxiety, other Endocrine: Reports: DM HEENT: Denies: TABLE MOUNTAIN (L), TABLE MOUNTAIN (R), cataract (L), cataract (R), glaucoma, other Hematology/Immune: Reports: anemia, other - thrombocytopenia PSxH Narrative: banding Anesthesia Pre-op Phys. Exam Physician Exam Last Vital Signs Date Time Temp Pulse Resp B/P Pulse Ox O2 Delivery O2 Flow Rate FiO2 12/18/16 09:00 58 144/66 12/18/16 08:05 96.8 20 97 Room Air 12/18/16 07:30 21 Constitutional: NAD Neurologic: CN 2-12 intact Cardiovascular: RRR, other - LBBB Respiratory: CTA Gastrointestinal: S/NT/ND Airway Exam Mallampati Classification 3 Mallampati Score: Class III MO: limited ROM: limited Teeth: missing Anesthesia Pre-op A/P Labs Hematology Test 12/18/16 04:40 White Blood Count 5.3 K/UL (4.8-10.8) Red Blood Count 3.56 M/UL (4.20-5.40) L Hemoglobin 11.3 G/DL (12.0-16.0) L Hematocrit 33.4 % (37.0-47.0) L Mean Corpuscular Volume 94 FL (80-99) Mean Corpuscular Hemoglobin 31.8 PG (27.0-31.0) H Mean Corpuscular Hemoglobin Concent 33.9 G/DL (32.0-36.0) Red Cell Distribution Width 12.8 % (11.6-14.8) Platelet Count 61 K/UL (150-450) L Mean Platelet Volume 8.5 FL (6.5-10.1) Neutrophils (%) (Auto) % (45.0-75.0) Lymphocytes (%) (Auto) % (20.0-45.0) Monocytes (%) (Auto) % (1.0-10.0) Eosinophils (%) (Auto) % (0.0-3.0) Basophils (%) (Auto) % (0.0-2.0) Differential Total Cells Counted 100 Neutrophils % (Manual) 50 % (45-75) Lymphocytes % (Manual) 45 % (20-45) Monocytes % (Manual) 2 % (1-10) Eosinophils % (Manual) 3 % (0-3) Basophils % (Manual) 0 % (0-2) Band Neutrophils 0 % (0-8) Platelet Estimate Decreased L Platelet Morphology Normal Anisocytosis 1+ Coagulation Test 12/18/16 04:40 Prothrombin Time 12.0 SEC (9.30-11.50) H Prothromb Time International Ratio 1.1 (0.9-1.1) Activated Partial Thromboplast Time 32 SEC (23-33) Chemistry Test 12/18/16 04:40 Sodium Level 141 mEQ/L (135-145) Potassium Level 3.3 mEQ/L (3.4-4.9) L Chloride Level 109 mEQ/L (98-107) H Carbon Dioxide Level 20 mEQ/L (20-30) Anion Gap 12 (5-15) Blood Urea Nitrogen 9 mg/dL (7-23) Creatinine 0.6 mg/dL (0.5-0.9) Estimat Glomerular Filtration Rate mL/min (>60) Glucose Level 117 mg/dL (74-106) H Calcium Level 8.2 mg/dL (8.6-10.2) L Phosphorus Level 2.8 mg/dL (2.5-4.8) Magnesium Level 1.6 mg/dL (1.7-2.5) L Total Bilirubin 1.0 mg/dL (0.0-1.2) Aspartate Amino Transf (AST/SGOT) 35 U/L (5-40) Alanine Aminotransferase (ALT/SGPT) 17 U/L (3-33) Alkaline Phosphatase 82 U/L (35-104) Total Protein 6.1 g/dL (6.6-8.7) L Albumin 3.2 g/dL (3.5-5.2) L Globulin 2.9 g/dL Albumin/Globulin Ratio 1.1 (1.0-2.7) Studies Pre-op Studies: EKG - LBBB Risk Assessment & Plan Plan: mac Status Change Before Surgery: No Pre-Antibiotics Drug: none JIM STEWART CRNA Dec 18, 2016 12:22
--- NOTE | 2016-12-18 13:09 | 48 Hour Post Anesthesia Eval ---
Post Anesthesia Evaluation Procedure: EGD Date of Evaluation: Dec 18, 2016 Time of Evaluation: 13:09 Blood Pressure Systolic: 112 0: 50 Pulse Rate: 70 Respiratory Rate: 14 O2 Sat by Pulse Oximetry: 100 Airway: patent Nausea: No Vomiting: No Hydration Status: adequate Mental Status/LOC: patient returned to baseline Post-Anesthesia Complications: none Follow-up care needed: N/A JIM STEWART CRNA Dec 18, 2016 13:09
[2016-12-18] MEDS ORDERED: GLUCOPHAGE500 MG ORAL (15:40)
[2016-12-18] MEDS ORDERED: STARLIX120 MG ORAL (15:40)
--- NOTE | 2016-12-18 15:49 | Pulmonology Progress Note ---
Assessment/Plan Problems: (1) Thrombocytopenia (2) Hyperglycemia (3) Epistaxis (4) Lower GI bleed (5) Diabetes mellitus, new onset Assessment/Plan OB + for endoscopy showed only gastritis GI evaluation appreciated might need bone marrow biopsy as outpatient ENT consult appreciated dc home with close outpatient f/u Subjective ROS Limited/Unobtainable: No Constitutional: Reports: no symptoms HEENT: Repors: no symptoms Respiratory: Reports: no symptoms Allergies: Coded Allergies: No Known Allergies (Unverified , 12/14/16) Objective Last 24 Hour Vital Signs Date Time Temp Pulse Resp B/P Pulse Ox O2 Delivery O2 Flow Rate FiO2 12/18/16 13:11 97.9 60 18 153/63 96 Room Air 12/18/16 13:09 70 14 100 12/18/16 13:00 97.4 60 22 154/71 96 Room Air 12/18/16 12:45 59 21 148/71 96 Room Air 12/18/16 12:30 60 20 135/68 96 Room Air 12/18/16 12:25 60 20 135/68 97 Room Air 12/18/16 12:19 70 14 100 12/18/16 12:15 61 19 132/65 97 Room Air 12/18/16 12:10 60 21 129/63 99 Nasal Cannula 3.0 12/18/16 12:05 97.8 60 21 132/66 99 Nasal Cannula 3.0 12/18/16 09:00 58 144/66 12/18/16 08:05 96.8 58 20 144/66 97 Room Air 12/18/16 07:30 58 18 Room Air 21 12/18/16 03:55 98.1 58 20 129/63 95 Room Air 12/18/16 00:00 97.5 57 20 130/56 99 Room Air 12/17/16 20:00 163/74 12/17/16 20:00 97.9 71 20 163/74 97 Room Air 12/17/16 19:56 71 18 Room Air 21 12/17/16 16:14 98.4 67 19 136/65 98 Room Air Intake and Output 12/17/16 12/18/16 19:00 07:00 Intake Total 1320 ml 1300 ml Balance 1320 ml 1300 ml Intake Oral 720 ml 200 ml IV Total 600 ml 1100 ml # Voids 1 1 General Appearance: WD/WN HEENT: normocephalic, atraumatic Respiratory/Chest: chest wall non-tender, lungs clear Breasts: no masses Cardiovascular: normal peripheral pulses, normal rate Abdomen: normal bowel sounds, soft, non tender Skin: no rash, no ulcers Neurologic/Psychiatric: 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 grossly normal, abnormal gait Lymphatic: no neck adenopathy Laboratory Tests 12/18/16 04:40: White Blood Count 5.3, Red Blood Count 3.56L, Hemoglobin 11.3L, Hematocrit 33.4L , Mean Corpuscular Volume 94, Mean Corpuscular Hemoglobin 31.8H, Mean Corpuscular Hemoglobin Concent 33.9, Red Cell Distribution Width 12.8, Platelet Count 61L, Mean Platelet Volume 8.5, Neutrophils (%) (Auto) , Lymphocytes (%) ( Auto) , Monocytes (%) (Auto) , Eosinophils (%) (Auto) , Basophils (%) (Auto) , Differential Total Cells Counted 100, Neutrophils % (Manual) 50, Lymphocytes % ( Manual) 45, Monocytes % (Manual) 2, Eosinophils % (Manual) 3, Basophils % ( Manual) 0, Band Neutrophils 0, Platelet Estimate DecreasedL, Platelet Morphology Normal, Anisocytosis 1+, Prothrombin Time 12.0H, Prothromb Time International Ratio 1.1, Activated Partial Thromboplast Time 32, Sodium Level 141, Potassium Level 3.3L, Chloride Level 109H, Carbon Dioxide Level 20, Anion Gap 12, Blood Urea Nitrogen 9, Creatinine 0.6, Estimat Glomerular Filtration Rate , Glucose Level 117H, Calcium Level 8.2L, Phosphorus Level 2.8, Magnesium Level 1.6L, Total Bilirubin 1.0, Aspartate Amino Transf (AST/SGOT) 35, Alanine Aminotransferase (ALT/SGPT) 17, Alkaline Phosphatase 82, Total Protein 6.1L, Albumin 3.2L, Globulin 2.9, Albumin/Globulin Ratio 1.1 Current Medications Medications (Trade) Dose Ordered Sig/Wilmer Route PRN Reason Start Time Stop Time Status Last Admin Dose Admin Acetaminophen (Tylenol) 650 mg Q4H PRN ORAL fever 12/15/16 06:30 01/14/17 06:29 Al Hydroxide/Mg Hydroxide (Mylanta II) 30 ml Q6H PRN ORAL dyspepsia 12/15/16 06:30 01/14/17 06:29 Albuterol/ Ipratropium (DuoNeb 0.5-3(2.5)mg/3ml) 3 ml Q4H PRN HHN Shortness of Breath 12/15/16 06:30 12/20/16 06:29 Amlodipine Besylate (Norvasc) 5 mg DAILY ORAL 12/16/16 09:00 01/15/17 08:59 12/17/16 09:08 Clonidine HCl (Catapres) 0.1 mg Q4H PRN ORAL sbp more than 160 12/15/16 06:30 01/14/17 06:29 12/17/16 20:00 Dextrose (Dextrose 50%) STAT PRN IV Hypoglycemia 12/15/16 06:30 01/14/17 06:29 Insulin Aspart (NovoLOG) BEFORE MEALS AND HS SUBQ 12/15/16 06:30 01/14/17 06:29 12/18/16 13:29 Latanoprost (Xalatan) 1 drop BEDTIME BOTH EYES 12/16/16 21:00 01/15/17 20:59 12/17/16 20:32 Magnesium Sulfate (Magnesium Sulfate 1gm/100ml) 100 ml @ 100 mls/hr Q1H IVPB 12/18/16 15:00 12/18/16 16:59 Metformin HCl (Glucophage) 500 mg TIAC ORAL 12/15/16 11:30 01/14/17 11:29 12/18/16 13:25 Morphine Sulfate (Morphine Sulfate) 2 mg Q4H PRN IVP severe pain 7-12/15/16 06:30 12/22/16 06:29 12/17/16 05:43 Nateglinide (Starlix) 120 mg TIAC ORAL 12/15/16 11:30 01/14/17 11:29 12/18/16 13:25 Nitroglycerin (Ntg) 0.4 mg Q5M X 3 DOSES PRN SL Prn Chest Pain 12/15/16 06:30 01/14/17 06:29 Ondansetron HCl (Zofran) 4 mg Q6H PRN IVP Nausea & Vomiting 12/15/16 06:30 01/14/17 06:29 Pantoprazole 40 mg 40 mg DAILY ORAL 12/18/16 09:00 01/17/17 08:59 Polyethylene Glycol (Miralax) 17 gm HSPRN PRN ORAL Constipation 12/15/16 06:30 01/14/17 06:29 Sodium Chloride (Sodium Chloride 1000ml bag) 1,000 ml @ 100 mls/hr Q10H IVLG 12/15/16 06:40 01/14/17 06:39 12/18/16 14:11 Temazepam (Restoril) 15 mg HSPRN PRN ORAL Insomnia 12/15/16 06:30 12/22/16 06:29 NADEEM BECERRIL Dec 18, 2016 15:49
--- NOTE | 2016-12-18 16:43 | General Progress Note ---
Assessment/Plan Problem List: (1) Diabetes mellitus, new onset ICD Codes: E11.9 - Type 2 diabetes mellitus without complications SNOMED: 905636537 (2) Thrombocytopenia ICD Codes: D69.6 - Thrombocytopenia, unspecified SNOMED: 875126477, 234403927 (3) Hyperglycemia ICD Codes: R73.9 - Hyperglycemia, unspecified SNOMED: 26320302, 614035074 (4) Epistaxis ICD Codes: R04.0 - Epistaxis SNOMED: 85247007, 613720768 Assessment/Plan BG values controlled on current regimen continue Metformin 500 mg tid + Starlix 120 mg ac tid continue SSI - no need for insulin after discharge Subjective Allergies: Coded Allergies: No Known Allergies (Unverified , 12/14/16) All Systems: reviewed and negative except above Subjective events noted Objective Last 24 Hour Vital Signs Date Time Temp Pulse Resp B/P Pulse Ox O2 Delivery O2 Flow Rate FiO2 12/18/16 13:11 97.9 60 18 153/63 96 Room Air 12/18/16 13:09 70 14 100 12/18/16 13:00 97.4 60 22 154/71 96 Room Air 12/18/16 12:45 59 21 148/71 96 Room Air 12/18/16 12:30 60 20 135/68 96 Room Air 12/18/16 12:25 60 20 135/68 97 Room Air 12/18/16 12:19 70 14 100 12/18/16 12:15 61 19 132/65 97 Room Air 12/18/16 12:10 60 21 129/63 99 Nasal Cannula 3.0 12/18/16 12:05 97.8 60 21 132/66 99 Nasal Cannula 3.0 12/18/16 09:00 58 144/66 12/18/16 08:05 96.8 58 20 144/66 97 Room Air 12/18/16 07:30 58 18 Room Air 21 12/18/16 03:55 98.1 58 20 129/63 95 Room Air 12/18/16 00:00 97.5 57 20 130/56 99 Room Air 12/17/16 20:00 163/74 12/17/16 20:00 97.9 71 20 163/74 97 Room Air 12/17/16 19:56 71 18 Room Air 21 Intake and Output 12/17/16 12/18/16 19:00 07:00 Intake Total 1320 ml 1300 ml Balance 1320 ml 1300 ml Intake Oral 720 ml 200 ml IV Total 600 ml 1100 ml # Voids 1 1 Laboratory Tests 12/18/16 04:40: White Blood Count 5.3, Red Blood Count 3.56L, Hemoglobin 11.3L, Hematocrit 33.4L , Mean Corpuscular Volume 94, Mean Corpuscular Hemoglobin 31.8H, Mean Corpuscular Hemoglobin Concent 33.9, Red Cell Distribution Width 12.8, Platelet Count 61L, Mean Platelet Volume 8.5, Neutrophils (%) (Auto) , Lymphocytes (%) ( Auto) , Monocytes (%) (Auto) , Eosinophils (%) (Auto) , Basophils (%) (Auto) , Differential Total Cells Counted 100, Neutrophils % (Manual) 50, Lymphocytes % ( Manual) 45, Monocytes % (Manual) 2, Eosinophils % (Manual) 3, Basophils % ( Manual) 0, Band Neutrophils 0, Platelet Estimate DecreasedL, Platelet Morphology Normal, Anisocytosis 1+, Prothrombin Time 12.0H, Prothromb Time International Ratio 1.1, Activated Partial Thromboplast Time 32, Sodium Level 141, Potassium Level 3.3L, Chloride Level 109H, Carbon Dioxide Level 20, Anion Gap 12, Blood Urea Nitrogen 9, Creatinine 0.6, Estimat Glomerular Filtration Rate , Glucose Level 117H, Calcium Level 8.2L, Phosphorus Level 2.8, Magnesium Level 1.6L, Total Bilirubin 1.0, Aspartate Amino Transf (AST/SGOT) 35, Alanine Aminotransferase (ALT/SGPT) 17, Alkaline Phosphatase 82, Total Protein 6.1L, Albumin 3.2L, Globulin 2.9, Albumin/Globulin Ratio 1.1 Height (Feet): 5 Height (Inches): 0.00 Weight (Pounds): 136 General Appearance: no apparent distress Neck: normal alignment Cardiovascular: normal rate Respiratory/Chest: chest wall non-tender Abdomen: normal bowel sounds Pelvis: normal external exam Edema: no edema noted Arm (L), no edema noted Arm (R), no edema noted Leg (L), no edema noted Leg (R), no edema noted Pedal (L), no edema noted Pedal (R), no edema noted Generalized Objective Current Medications Medications (Trade) Dose Ordered Sig/Wilmer Route PRN Reason Start Time Stop Time Status Last Admin Dose Admin Acetaminophen (Tylenol) 650 mg Q4H PRN ORAL fever 12/15/16 06:30 01/14/17 06:29 Al Hydroxide/Mg Hydroxide (Mylanta II) 30 ml Q6H PRN ORAL dyspepsia 12/15/16 06:30 01/14/17 06:29 Albuterol/ Ipratropium (DuoNeb 0.5-3(2.5)mg/3ml) 3 ml Q4H PRN HHN Shortness of Breath 12/15/16 06:30 12/20/16 06:29 Amlodipine Besylate (Norvasc) 5 mg DAILY ORAL 12/16/16 09:00 01/15/17 08:59 12/17/16 09:08 Clonidine HCl (Catapres) 0.1 mg Q4H PRN ORAL sbp more than 160 12/15/16 06:30 01/14/17 06:29 12/17/16 20:00 Dextrose (Dextrose 50%) STAT PRN IV Hypoglycemia 12/15/16 06:30 01/14/17 06:29 Insulin Aspart (NovoLOG) BEFORE MEALS AND HS SUBQ 12/15/16 06:30 01/14/17 06:29 12/18/16 13:29 Latanoprost (Xalatan) 1 drop BEDTIME BOTH EYES 12/16/16 21:00 01/15/17 20:59 12/17/16 20:32 Magnesium Sulfate (Magnesium Sulfate 1gm/100ml) 100 ml @ 100 mls/hr Q1H IVPB 12/18/16 15:00 12/18/16 16:59 Metformin HCl (Glucophage) 500 mg TIAC ORAL 12/15/16 11:30 01/14/17 11:29 12/18/16 13:25 Morphine Sulfate (Morphine Sulfate) 2 mg Q4H PRN IVP severe pain 7-12/15/16 06:30 12/22/16 06:29 12/17/16 05:43 Nateglinide (Starlix) 120 mg TIAC ORAL 12/15/16 11:30 01/14/17 11:29 12/18/16 13:25 Nitroglycerin (Ntg) 0.4 mg Q5M X 3 DOSES PRN SL Prn Chest Pain 12/15/16 06:30 01/14/17 06:29 Ondansetron HCl (Zofran) 4 mg Q6H PRN IVP Nausea & Vomiting 12/15/16 06:30 01/14/17 06:29 Pantoprazole 40 mg 40 mg DAILY ORAL 12/18/16 09:00 01/17/17 08:59 Polyethylene Glycol (Miralax) 17 gm HSPRN PRN ORAL Constipation 12/15/16 06:30 01/14/17 06:29 Sodium Chloride (Sodium Chloride 1000ml bag) 1,000 ml @ 100 mls/hr Q10H IVLG 12/15/16 06:40 01/14/17 06:39 12/18/16 14:11 Temazepam (Restoril) 15 mg HSPRN PRN ORAL Insomnia 12/15/16 06:30 12/22/16 06:29 Item Value Date Time Bedside Blood Glucose 142 mg/dl H 12/18/16 1329 Bedside Blood Glucose 116 mg/dl 12/18/16 0607 Bedside Blood Glucose 139 mg/dl H 12/17/16 2100 Bedside Blood Glucose 82 mg/dl 12/17/16 1630 Bedside Blood Glucose 114 mg/dl 12/17/16 1250 CHRISTIN COLINDRES Dec 18, 2016 16:43
--- NOTE | 2016-12-18 16:58 | General Progress Note ---
Assessment/Plan Assessment/Plan 1. Anterior epistaxis bleed, potentially secondary to thrombocytopenia, which is likely exacerbated. The bleed has been controlled with the administration of epinephrine and lidocaine. No evidence of coagulopathy. The INR is within normal limits. 2. Anemia. Monitor crit. Stable, improved 3. Thrombocytopenia. negative for hepatitis and hiv, us of the abd shows cirrhosis, portal htn ---> abd US shows evidence of portal HTN associated with liver disease ---> SINCE PLATELET COUNT >50k and bleed resolved, hold off on transfusions. The H/H stable at the moment. ---> Monitor H/H 4. Hyperglycemia, rule out diabetes mellitus. Starting on metformin. 5. Left bundle-branch block. 6. Occult blood positive ---> egd shows gastritis 7. Discussed with staff Subjective Constitutional: Reports: no symptoms HEENT: Reports: no symptoms Cardiovascular: Reports: no symptoms Respiratory: Reports: no symptoms Gastrointestinal/Abdominal: Reports: no symptoms Genitourinary: Reports: no symptoms Neurologic/Psychiatric: Reports: no symptoms Endocrine: Reports: no symptoms Hematologic/Lymphatic: Reports: no symptoms Allergies: Coded Allergies: No Known Allergies (Unverified , 12/14/16) Subjective egd only showed gastritis Objective Last 24 Hour Vital Signs Date Time Temp Pulse Resp B/P Pulse Ox O2 Delivery O2 Flow Rate FiO2 12/18/16 16:44 97.3 64 18 140/70 96 Room Air 12/18/16 13:11 97.9 60 18 153/63 96 Room Air 12/18/16 13:09 70 14 100 12/18/16 13:00 97.4 60 22 154/71 96 Room Air 12/18/16 12:45 59 21 148/71 96 Room Air 12/18/16 12:30 60 20 135/68 96 Room Air 12/18/16 12:25 60 20 135/68 97 Room Air 12/18/16 12:19 70 14 100 12/18/16 12:15 61 19 132/65 97 Room Air 12/18/16 12:10 60 21 129/63 99 Nasal Cannula 3.0 12/18/16 12:05 97.8 60 21 132/66 99 Nasal Cannula 3.0 12/18/16 09:00 58 144/66 12/18/16 08:05 96.8 58 20 144/66 97 Room Air 12/18/16 07:30 58 18 Room Air 21 12/18/16 03:55 98.1 58 20 129/63 95 Room Air 12/18/16 00:00 97.5 57 20 130/56 99 Room Air 12/17/16 20:00 163/74 12/17/16 20:00 97.9 71 20 163/74 97 Room Air 12/17/16 19:56 71 18 Room Air 21 Intake and Output 12/17/16 12/18/16 19:00 07:00 Intake Total 1320 ml 1300 ml Balance 1320 ml 1300 ml Intake Oral 720 ml 200 ml IV Total 600 ml 1100 ml # Voids 1 1 Laboratory Tests 12/18/16 04:40: White Blood Count 5.3, Red Blood Count 3.56L, Hemoglobin 11.3L, Hematocrit 33.4L , Mean Corpuscular Volume 94, Mean Corpuscular Hemoglobin 31.8H, Mean Corpuscular Hemoglobin Concent 33.9, Red Cell Distribution Width 12.8, Platelet Count 61L, Mean Platelet Volume 8.5, Neutrophils (%) (Auto) , Lymphocytes (%) ( Auto) , Monocytes (%) (Auto) , Eosinophils (%) (Auto) , Basophils (%) (Auto) , Differential Total Cells Counted 100, Neutrophils % (Manual) 50, Lymphocytes % ( Manual) 45, Monocytes % (Manual) 2, Eosinophils % (Manual) 3, Basophils % ( Manual) 0, Band Neutrophils 0, Platelet Estimate DecreasedL, Platelet Morphology Normal, Anisocytosis 1+, Prothrombin Time 12.0H, Prothromb Time International Ratio 1.1, Activated Partial Thromboplast Time 32, Sodium Level 141, Potassium Level 3.3L, Chloride Level 109H, Carbon Dioxide Level 20, Anion Gap 12, Blood Urea Nitrogen 9, Creatinine 0.6, Estimat Glomerular Filtration Rate , Glucose Level 117H, Calcium Level 8.2L, Phosphorus Level 2.8, Magnesium Level 1.6L, Total Bilirubin 1.0, Aspartate Amino Transf (AST/SGOT) 35, Alanine Aminotransferase (ALT/SGPT) 17, Alkaline Phosphatase 82, Total Protein 6.1L, Albumin 3.2L, Globulin 2.9, Albumin/Globulin Ratio 1.1 Height (Feet): 5 Height (Inches): 0.00 Weight (Pounds): 136 General Appearance: WD/WN EENT: PERRL/EOMI Neck: non-tender Cardiovascular: normal peripheral pulses Respiratory/Chest: lungs clear Abdomen: non tender Pelvis: normal external exam Edema: no edema noted Pedal (L), no edema noted Pedal (R) Neurologic: manufacturing design engineer II-XII grossly normal Skin: warm/dry Anthony Agee Dec 18, 2016 16:58
--- NOTE | 2016-12-18 17:00 | Procedure Note ---
DATE OF PROCEDURE: 12/18/2016 PROCEDURE: Upper endoscopy with biopsy. SURGEON: Vijay Truong M.D. ANESTHESIA: Per Lachelle NARVAEZ. REFERRING PHYSICIAN: Stefani Dunham M.D. INSTRUMENT: Olympus adult flexible upper endoscope. INDICATION: Anemia, stool OB positive, history of cirrhosis, and esophageal varices. The procedure, risks, benefits, and possible consequences, including hemorrhage, aspiration, perforation and infection, and alternative treatments, were explained to the patient/legal guardian by Dr. Vijay Truong and the patient/legal guardian understood and accepted these risks. DESCRIPTION OF PROCEDURE: After informed consent was obtained and the patient was adequately sedated, Olympus upper endoscope was advanced mouth into the second portion of the duodenum and retroflexion was performed in the stomach. The patient has evidence of some esophageal varices, maybe grade 2. There were two ulcerations in the distal esophagus, possibly recent banding, not sure. There is no evidence of any active large bleeding varices at this time. Then, the scope was advanced into the stomach and retroflexion was performed. There was no evidence of any gastric varices. The patient has evidence of portal hypertensive gastropathy. Random biopsy from antrum was obtained to rule out H. pylori infection. The patient tolerated the procedure without any complication. SUMMARY OF FINDINGS: 1. Small esophageal varices. 2. Questionable recent banding of the esophageal varices in another facility. 3. Portal hypertensive gastropathy. 4. Gastritis, status post biopsy. RECOMMENDATIONS: 1. Follow up biopsy results and treat accordingly. 2. The patient might benefit from colonoscopy on Wednesday if needed. I want to thank, Dr. Dunham, for this kind referral. Vijay Truong M.D. DR: DAVID JOB#: [id number] CC: Stefani Dunham M.D.; Fax#: [phone]
[2016-12-18] MEDS ORDERED: Propofol 10mg/ml 20ml IV ONE (18:09)
[2016-12-18] MEDS ORDERED: LR 1000ml ONE (18:09)
[2016-12-18] MEDS ORDERED: Lidocaine 1% MPF 10mg/ml 5ml ONE (18:09)
--- NOTE | 2016-12-21 09:34 | Discharge Summary ---
Discharge Summary Hospital Course Date of Admission Dec 15, 2016 at 02:30 Date of Discharge Dec 18, 2016 at 18:10 Admitting Diagnosis HYPERGLYCEMIA,THROMBOCYTOPENIA HPI Vaishali Cote is a 81 year old female who was admitted on Dec 15, 2016 at 02:30 for Hyperglycemia,Thrombocytopenia Hospital Course dc summary #[id number] Discharge Medications New Medications: Metformin Hcl* (Glucophage*) 500 Mg Tablet 500 MG ORAL TIAC for 30 Days, TAB Nateglinide (Starlix) 120 Mg Tablet 120 MG ORAL TIAC for 30 Days, TAB Continued Medications: Amlodipine Besylate (Norvasc) 5 Mg Tablet 5 MG ORAL DAILY, TAB Discharge Discharge Disposition Patient was discharged to Home (01) Discharge Diagnoses: Discharge Instructions Discharge Instructions Special Instructions I have been assigned to complete a D/C Summary on this account. I was not involved in the patient management Galilea Suarez NP (Vanchtein) Dec 21, 2016 09:34
--- NOTE | 2016-12-22 00:31 | Discharge Summary 2 SIG ---
DATE OF ADMISSION: 12/15/2016 DATE OF DISCHARGE: 12/18/2016 The patient was admitted under Dr. Dunham. REASON FOR ADMISSION: The patient is a 81-year-old female with a history of hypertension, presented to the emergency department with nose bleeding, which began one hour before presentation. The patient denied any bleeding disorder. She denies fever or pain. She denied swallowing any clots. She was not able to decrease the amount of bleeding by putting pressure on the nose. In the emergency department, anterior epistaxis was controlled with lidocaine and epinephrine. However, the patient was found to have significant hyperglycemia. Blood sugar was 438 without known history of diabetes and platelets were 75,000. The patient was admitted due to low platelets and hyperglycemia. The patient was started on metformin. ADMITTING DIAGNOSES: Includes: 1. Anterior epistaxis. 2. Hyperglycemia. 3. Thrombocytopenia. 4. Possible diabetes mellitus, new onset. HOSPITAL STAY: The patient was admitted. Endocrinology consult was requested. The patient was started on metformin and Starlix as well as a sliding scale of insulin as needed. Hemoglobin A1c 9.6 was diagnostic for diabetes and the patient needs further optimization of anti-glycemic regimen as an outpatient. Cutting And Creasing Press Operator cleared for discharge. No need for insulin. Upon discharge, to continue oral medication and follow up with harnessmaker apprentice as outpatient. ENT seen the patient for an episode of epistaxis. According to ENT, he recommended a small amount of Neosporin or Polysporin to the nose twice a day to help moisturize the nose keeping mucosa softer and less friable. No further episodes of nose bleeding. Compilation Clerk seen the patient due to thrombocytopenia. According to patient scheduling manager, anterior epistaxis bleeding potentially secondary to thrombocytopenia. No evidence of coagulopathy. INR within normal limits. Negative hepatitis panel. Negative human immunodeficiency virus. Ultrasound of the abdomen showed cirrhosis and portal hypertension. No need for transfusion since platelet count above 50,000 and bleeding resolved. Hemoglobin and hematocrit stable at this time. Monitor closely. Stool OB was positive. GI followed. The patient subsequently undergone upper endoscopy with biopsy on 12/18/2016, which was found to have a small esophageal varices, possible history of recent esophageal varices banding, gastritis status post biopsy, and portal hypertensive gastropathy. GI recommended symptomatic treatment. Monitor hemoglobin and hematocrit and follow up with the biopsy results. Blood pressure was managed with calcium channel radha and was stable. To reiterate, abdominal ultrasound shows suspicion of chronic liver disease, cirrhosis, portal hypertension, and probably small varices. All consultants cleared the patient for discharge. DISCHARGE DIAGNOSES: Includes: 1. Anterior epistaxis, controlled. 2. Hyperglycemia due to the new onset of diabetes. 3. New onset of diabetes. 4. Thrombocytopenia. 5. Anemia. 6. Status post 12/18/2016 esophagogastroduodenoscopy with biopsy. 7. Small esophageal varices. 8. Gastritis, status post biopsy. 9. Portal hypertensive gastropathy. 10. Hypertension. DISCHARGE INSTRUCTIONS: The patient was instructed to follow up with the GI and harnessmaker apprentice and have to start with the primary medical doctor in one week of discharge. DISCHARGE MEDICATIONS: See medication reconciliation list. The patient is discharged home. Stefani Dunham M.D. I have been assigned to dictate discharge summary on this account and I was not involved in the patient's management. Galilea wangAndrew govea DR: ERIC JOB#: [id number] CC:
== END 2016-12-18 18:10 | disposition home or self-care (01) | DRG 813 ==
LOC: EMR 23:15 → 4E 12-15 02:30 → EDBEDREQ 12-15 02:57
PROC: 2Y41X5Z Packing of Nasal Region using Packing Material (ICD-10-PCS; principal; 2016-12-15)
PROC: 0DB68ZX Excision of Stomach, Via Natural or Artificial Opening Endoscopic, Diagnostic (ICD-10-PCS; 2016-12-18)
DX: D69.6 Thrombocytopenia, unspecified (principal); I85.10 Secondary esophageal varices without bleeding; K76.6 Portal hypertension; K92.2 Gastrointestinal hemorrhage, unspecified; R04.0 Epistaxis; E11.65 Type 2 diabetes mellitus with hyperglycemia; K74.69 Other cirrhosis of liver; D64.9 Anemia, unspecified; K31.89 Other diseases of stomach and duodenum; K29.70 Gastritis, unspecified, without bleeding; I44.7 Left bundle-branch block, unspecified; K74.60 Unspecified cirrhosis of liver; I10 Essential (primary) hypertension
CPT/HCPCS: 36415; 76700; 80053; 80061; 82248; 82270; 82378; 82550; 82607; 82746; 82962; 83036; 83540; 83550; 83615; 83735; 83880; 84100; 84443; 84484; 85007; 85025; 85044; 85060; 85610; 85651; 85730; 86703; 86705; 86709; 86803; 86900; 86901; 87340; 93005; 94003; 94150; 94664; 94760; J1815

== ENCOUNTER 2017-11-17 19:18 | Emergency (ER) | payer MEDICAID, MEDICARE ==
[~2017-11-17] VITALS: Ht 160 cm; Wt 69.4 kg
[~2017-11-17 19:18] MED LIST: GLUCOPHAGE500 MG ORAL; NORVASC5 MG ORAL; STARLIX120 MG ORAL; UNOBMED
[2017-11-17] MEDS ORDERED: Norco 5mg/325mg tab ORAL ONE ×2 (19:30→19:45)
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
[2017-11-17 20:00] VITALS: BP 166/71
[2017-11-17] MEDS ORDERED: NORCO 5-325 TA1 EACH ORAL (20:25)
[2017-11-17 20:37] VITALS: BP 166/71
--- NOTE | 2017-11-18 09:17 | Diagnostic Imaging Report ---
Indication: Foot pain Technique: 3 views left foot Comparison: none Findings: There is a bunion and slight hallux valgus. No acute fractures. No dislocations. Small plantar and calcaneal spurs noted. Impression: No acute process
== END 2017-11-17 20:37 | disposition home or self-care (01) ==
LOC: EDBD 19:18 → EMR 19:40
DX: M21.612 Bunion of left foot (principal); M20.12 Hallux valgus (acquired), left foot; I10 Essential (primary) hypertension; E11.9 Type 2 diabetes mellitus without complications; I25.10 Atherosclerotic heart disease of native coronary artery without angina pectoris; S92.912A Unspecified fracture of left toe(s), initial encounter for closed fracture; W22.8XXA Striking against or struck by other objects, initial encounter; Y92.811 Bus as the place of occurrence of the external cause; Z88.4 Allergy status to anesthetic agent
CPT/HCPCS: 99283